=== PATIENT | male | born 1960 | race Caucasian/White ===

== ENCOUNTER → 2017-04-03 | Outpatient (CLI) | payer OTHER ==
[2017-04-03 08:44] LABS: ALT 45 U/L (21-72); AST 31 U/L (17-59); Cholesterol 173 mg/dL (<200); HDL Cholesterol 37 mg/dL (40-60); LDL Cholesterol,Calculated 98 mg/dL (0-99); Triglycerides 189 mg/dL (<150)
== END | disposition home or self-care (01) ==
LOC: LABWHC1 07:28
PROVIDERS: ATTEND Internal Medicine Interventional Cardiology
DX: E78.2 Mixed hyperlipidemia (principal)
CPT/HCPCS: 36415; 80061; 84450; 84460

== ENCOUNTER → 2017-10-19 | Outpatient (CLI) | payer OTHER ==
[2017-10-19 07:58] LABS: Basophils % (A) 1 %; Eosinophils # (A) 0.2 k/uL (0-0.7); Eosinophils % (A) 2 %; HCT 49.2 % (39.0-53.0); HGB 16.1 gm/dL (13.0-17.5); Lymphocytes # (A) 2.3 k/uL (1.0-4.8); Lymphocytes % (A) 27 %; MCH 29.4 pg (25.0-35.0); MCHC 32.8 g/dL (31.0-37.0); MCV 89.8 fL (80.0-100.0); Mean Platelet Volume 6.1; Monocytes # (A) 0.5 k/uL (0-1.0); Monocytes % (A) 6 %; Neutrophils # (A) 5.2 k/uL (1.3-7.7); Neutrophils % (A) 63 %; Platelet Count 225 k/uL (150-450); RBC 5.47 m/uL (4.30-5.90); WBC 8.4 k/uL (3.8-10.6)
[2017-10-19 10:09] LABS: ALT 57 U/L (21-72); AST 39 U/L (17-59); Albumin 4.1 g/dL (3.5-5.0); Alkaline Phosphatase 77 U/L (38-126); Anion Gap 7 mmol/L; Blood Urea Nitrogen 14 mg/dL (9-20); Calcium 9.2 mg/dL (8.4-10.2); Carbon Dioxide 27 mmol/L (22-30); Chloride 108 mmol/L (98-107); Cholesterol 151 mg/dL (<200); Glucose 114 mg/dL (74-99); HDL Cholesterol 34 mg/dL (40-60); LDL Cholesterol,Calculated 75 mg/dL (0-99); Potassium 4.3 mmol/L (3.5-5.1); Sodium 142 mmol/L (137-145); Total Bilirubin 0.4 mg/dL (0.2-1.3); Total Protein 6.9 g/dL (6.3-8.2); Triglycerides 209 mg/dL (<150)
[2017-10-19 10:23] LABS: T4, Free (Free Thyroxine) 1.17 ng/dL (0.78-2.19)
[2017-10-19 10:37] LABS: PSA Annual Screen 0.93 ng/mL (0.00-4.00)
[2017-10-19 19:13] LABS: Hemoglobin A1C 6.2 % (4.0-6.0)
== END | disposition home or self-care (01) ==
LOC: LABWHC1 07:28
PROVIDERS: ATTEND Internal Medicine Critical Care Medicine
DX: E78.5 Hyperlipidemia, unspecified (principal); I10 Essential (primary) hypertension; R53.83 Other fatigue; Z79.899 Other long term (current) drug therapy
CPT/HCPCS: 84439; 80061; 80053; 84443; 85025; 82306; 83036; 36415; G0103

== ENCOUNTER → 2018-09-24 | Outpatient (CLI) | payer SELFPAY ==
[2018-09-24 16:12] LABS: Chol/HDL Ratio 3.6; LDL Cholesterol,Calculated 72.4 mg/dL (0.0-131.0); VLDL Calculation 36.6 mg/dL (5.00-40.00)
== END ==
LOC: LABWHC1 07:30
PROVIDERS: ATTEND Nurse Practitioner Adult Health
DX: E78.2 Mixed hyperlipidemia (principal)
CPT/HCPCS: 36415; 80061; 84450; 84460

== ENCOUNTER → 2018-10-17 | Outpatient (CLI) | payer SELFPAY ==
[2018-10-17 13:54] LABS: Hemoglobin A1C 6.3 % (4.0-6.0)
== END | disposition home or self-care (01) ==
LOC: LABWHC1 07:12
PROVIDERS: ATTEND Internal Medicine Critical Care Medicine
DX: R73.9 Hyperglycemia, unspecified (principal)
CPT/HCPCS: 36415; 82947; 83036

== ENCOUNTER → 2019-04-17 | Outpatient (CLI) | payer SELFPAY ==
--- NOTE | 2019-04-17 15:50 | CTL ---
EXAMINATION TYPE: CT Low Dose Lung DATE OF EXAM ORDERED: 04/17/2019 HISTORY: Long-term tobacco use. Lung cancer screening CT DLP: 104.[address] CTDI: 2.6 mGy Automated exposure control for dose reduction was used. SCREENING VISIT: Initial study COMPARISON: None TECHNIQUE: Low dose computed tomography scan was performed through the chest at 1 mm thick sections a nd reconstructed images in the coronal plane at [address] DIAGNOSTIC QUALITY: Satisfactory FINDINGS: LUNG NODULES: None. LUNGS: COPD: Severity: Moderate Fibrosis: Severity: Mild to moderate focal posterior bibasilar. Lymph nodes: No greater than 1 cm Other findings: None BILATERAL PLEURAL SPACE: Effusion: None Calcification: None Thickening: None Pneumothorax: None HEART: Heart Size: Normal Coronary calcification: Mild Pericardial effusion: None OTHER FINDINGS: Upper abdomen: None Bony thorax: Early moderate to severe multilevel anterior and lateral spurring Supraclavicular region: None Other: None IMPRESSION: Moderate emphysematous change without suspicious nodules. FOLLOW UP CT CHEST RECOMMENDATION: Annual low-dose lung screening CT CT LUNG RAD: Lung-Rad 1 Negative
== END | disposition home or self-care (01) ==
LOC: RADCTMAIN 15:13
PROVIDERS: ATTEND Internal Medicine Critical Care Medicine
DX: J43.9 Emphysema, unspecified (principal); Z87.891 Personal history of nicotine dependence

== ENCOUNTER → 2019-10-14 | Outpatient (CLI) | payer SELFPAY ==
[2019-10-14 18:09] LABS: African American GFR (CKD) 83.5 (60.0-200.0); Albumin 4.2 g/dL (3.80-4.90); Albumin/Globulin Ratio 2.1 (1.60-3.17); Anion Gap 5.6 mmol/L (4.00-12.00); BUN/Creat Ratio 14.55 Ratio (12.00-20.00); Calcium 9.1 mg/dL (8.7-10.3); Carbon Dioxide 27.4 mmol/L (21.6-31.8); Chol/HDL Ratio 2.98; LDL Cholesterol,Calculated 68.2 mg/dL (0.0-131.0); Non-African American GFR(CKD) 72.1 (60.0-200.0); Potassium 4.3 mmol/L (3.5-5.5); Total Bilirubin 0.4 mg/dL (0.2-1.2); Total Protein 6.2 g/dL (6.2-8.2); VLDL Calculation 14.8 mg/dL (5.00-40.00)
[2019-10-15 00:21] LABS: Hemoglobin A1C 6.3 % (4.0-6.0)
== END | disposition home or self-care (01) ==
LOC: LABWHC1 07:59
PROVIDERS: ATTEND Internal Medicine Interventional Cardiology
DX: E78.2 Mixed hyperlipidemia (principal); E16.2 Hypoglycemia, unspecified; R63.4 Abnormal weight loss
CPT/HCPCS: 36415; 80053; 80061; 83036

== ENCOUNTER → 2020-01-23 | Outpatient (CLI) | payer SELFPAY ==
[2020-01-23 16:07] LABS: Hemoglobin A1C 5.8 % (4.0-6.0)
[2020-01-23 20:01] LABS: African American GFR (CKD) 106.5 (60.0-200.0); Albumin 4.6 g/dL (3.80-4.90); Albumin/Globulin Ratio 2.3 (1.60-3.17); Anion Gap 5.9 mmol/L (4.00-12.00); BUN/Creat Ratio 18.89 Ratio (12.00-20.00); Calcium 9.6 mg/dL (8.7-10.3); Carbon Dioxide 27.1 mmol/L (21.6-31.8); Chol/HDL Ratio 2.84; LDL Cholesterol,Calculated 66.6 mg/dL (0.0-131.0); Non-African American GFR(CKD) 91.9 (60.0-200.0); Potassium 4.5 mmol/L (3.5-5.5); Total Bilirubin 0.6 mg/dL (0.3-1.2); Total Protein 6.6 g/dL (6.2-8.2); VLDL Calculation 16.4 mg/dL (5.00-40.00)
== END | disposition home or self-care (01) ==
LOC: LABWHC1 10:36
PROVIDERS: ATTEND Internal Medicine Critical Care Medicine
DX: I10 Essential (primary) hypertension (principal); E78.2 Mixed hyperlipidemia; R73.03 Prediabetes; Z20.828 Contact with and (suspected) exposure to other viral communicable diseases
CPT/HCPCS: 36415; 80053; 80061; 83036; 86769

== ENCOUNTER → 2021-03-03 | Outpatient (CLI) | payer SELFPAY ==
[2021-03-03 14:35] LABS: Basophils # (A) 0.03 X 10*3/uL (0.00-0.10); Basophils % (A) 0.4 %; Eosinophils # (A) 0.18 X 10*3/uL (0.04-0.35); Eosinophils % (A) 2.3 %; HCT 46.6 % (39.6-50.0); HGB 14.9 g/dL (13.0-17.0); Lymphocytes # (A) 2.57 X 10*3/uL (0.90-5.00); Lymphocytes % (A) 32.6 %; MCH 29.4 pg (27.0-32.0); MCV 92.1 fL (80.0-97.0); Mean Platelet Volume 9.7 fL (9.5-12.2); Monocytes # (A) 0.78 X 10*3/uL (0.20-1.00); Monocytes % (A) 9.9 %; Neutrophils # (A) 4.31 X 10*3/uL (1.80-7.70); Neutrophils % (A) 54.7 %; Platelet Count 231 X 10*3/uL (140-440); RBC 5.06 X 10*6/uL (4.40-5.60); RDW 14.4 % (11.5-14.5); WBC 7.88 X 10*3/uL (4.50-10.00)
[2021-03-03 16:17] LABS: ALT 30 U/L (10-49); AST 27 U/L (14-35); African American GFR (CKD) 108.4 (60.0-200.0); Albumin 4.3 g/dL (3.8-4.9); Alkaline Phosphatase 86 U/L (41-126); BUN/Creat Ratio 14.42 Ratio (12.00-20.00); Blood Urea Nitrogen 12.2 mg/dL (9.0-27.0); Carbon Dioxide 21.6 mmol/L (20.0-27.5); Chloride 108 mmol/L (96-109); Globulin 2.3 g/dL (1.6-3.3); Glucose 109 mg/dL (70-110); Non-African American GFR(CKD) 93.6 (60.0-200.0); Potassium 4.5 mmol/L (3.5-5.5); Sodium 141 mmol/L (135-145); Total Protein 6.6 g/dL (6.2-8.2)
[2021-03-03 16:19] LABS: Chol/HDL Ratio 2.64 Ratio; VLDL Calculation 13.14 mg/dL (5.00-40.00)
== END | disposition home or self-care (01) ==
LOC: LABWHC1 07:47
PROVIDERS: ATTEND Internal Medicine Critical Care Medicine
DX: Z00.00 Encounter for general adult medical examination without abnormal findings (principal); E78.2 Mixed hyperlipidemia; J44.9 Chronic obstructive pulmonary disease, unspecified; M54.30 Sciatica, unspecified side; K21.9 Gastro-esophageal reflux disease without esophagitis; F41.9 Anxiety disorder, unspecified; I10 Essential (primary) hypertension; R73.03 Prediabetes
CPT/HCPCS: 84439; 80061; 80053; 85025; 82306; 83036; 36415; G0103

== ENCOUNTER → 2021-05-14 | Outpatient (CLI) | payer SELFPAY ==
[2021-05-14 08:15] LABS: African American GFR (CKD) >90 (>60 ml/min/1.73 sqM); Blood Urea Nitrogen 18 mg/dL (9-20); Non-African American GFR(CKD) >90 (>60 ml/min/1.73 sqM)
--- NOTE | 2021-05-14 13:32 | CT ---
EXAMINATION TYPE: CT ChestAbdPelvis w con DATE OF EXAM: 05/14/2021 COMPARISON: CT dated 04/17/2019 HISTORY: Abnormal weight loss CT DLP: 1241 mGycm Automated exposure control for dose reduction was used. CONTRAST: CT scan of the chest, abdomen and pelvis is performed with Oral Contrast and with IV Contrast, patien t injected with 100 ml mL of Isovue 300. FINDINGS: LUNGS: COPD changes. Bilateral basal pulmonary atelectasis. Unremarkable lungs otherwise. Patent cent ral airways. No pleural effusion. MEDIASTINUM: There are no greater than 1 cm hilar or mediastinal lymph nodes. Slightly enlarged right ventricle. Coronary and arterial atherosclerotic calcifications. No pericardial effusion is seen. OTHER: Sclerotic focus within the axillary portion of the right ninth rib, nonspecific. Further bone scan assessment can be considered. No aggressive bone lesion. LIVER/GB: Stable tiny right hepatic lobe cyst measuring 5 mm, otherwise unremarkable liver. Unremarka ble gallbladder. PANCREAS: No significant abnormality is seen. SPLEEN: 5 mm cyst is seen at the upper pole of the spleen. Unremarkable spleen otherwise. ADRENALS: No significant abnormality is seen. KIDNEYS: No significant abnormality is seen. BOWEL: Unremarkable stomach and duodenum. Mild nonspecific dilatation of the small bowel without sandor dence of high-grade small bowel obstruction. Fecalization of the distal ileal loops. Malabsorption sy ndrome can't be excluded. Moderate fecal loading of the colon. REPRODUCTIVE ORGANS: No gross abnormality seen. LYMPH NODES: No greater than 1 cm abdominal or pelvic lymph nodes are appreciated. OSSEOUS STRUCTURES: Bilateral L4-5 facet osteoarthropathy with grade 1 anterolisthesis of L5 over S1. Degenerative changes at L5-S1 level. No aggressive bone lesion. OTHER: Scattered arterial atherosclerotic calcifications. No sizable ascites. IMPRESSION: 1. No definite suspicious lesion or lymphadenopathy seen in the chest, abdomen or the pelvis. 2. COPD changes. 3. Malabsorption syndrome cannot excluded by this CT scan. Other findings as described above.
== END | disposition home or self-care (01) ==
LOC: RADCTMAIN 07:29
PROVIDERS: ATTEND Internal Medicine Critical Care Medicine
DX: J44.9 Chronic obstructive pulmonary disease, unspecified (principal); K90.9 Intestinal malabsorption, unspecified
CPT/HCPCS: 82565; 84520; 71260; 74177; 36415; Q9967

== ENCOUNTER 2022-03-10 19:50 | Inpatient (IN) | payer SELFPAY ==
--- NOTE | 2022-03-10 20:43 | XR ---
EXAMINATION TYPE: XR chest 2V DATE OF EXAM: 03/10/2022 COMPARISON: Outside chest x-ray February 03, 2022. Prior CT May 14, 2021 HISTORY: Shortness of breath TECHNIQUE: Frontal and lateral views of the chest are obtained. FINDINGS: There is background chronic emphysematous change without suspicious focal air space opacit y, pleural effusion, or pneumothorax seen. The cardiac silhouette size is stable and within normal l imits. Multilevel spurring in thoracic spine is present. IMPRESSION: Chronic emphysematous change without acute pulmonary process.
--- NOTE | 2022-03-10 21:01 | ED ---
SOB HPI - General Chief Complaint: Shortness of Breath Stated Complaint: ADRIA Time Seen by Provider: 03/10/22 20:05 Source: patient, family, RN notes reviewed Mode of arrival: ambulatory Limitations: no limitations - History of Present Illness Initial Comments: 61-year-old male history of COPD who states for the past 2 months she's had progressively worsening symptoms of shortness of breath he's had a nonproductive cough recently has had fevers and chills he test himself twice a week and was negative for "on his last test. He is seen his pulmonary doctor as well as cardiology recently with no definitive diagnosis. He denies any overt chest pain he does normally use oxygen 2 L at night. He does use inhalers. He states is had decreased appetite weakness he severe frontal headache he's had 2 episodes of nausea vomiting last couple days. He states his temperature is gotten up to 101-102F he's not been sleeping well. MD Complaint: shortness of breath, cough - Related Data Home Medications Medication Instructions Recorded Confirmed ALPRAZolam [Xanax] 0.5 mg PO DAILY 10/30/18 10/30/18 Ipratropium/Albuterol Sulfate 1 puff INHALATION Q4-6H 10/30/18 10/30/18 [Combivent Respimat Inhaler] Rizatriptan Benzoate [Rizatriptan] 10 mg PO DAILY 10/30/18 10/30/18 Simvastatin [Zocor] 40 mg PO DAILY 10/30/18 10/30/18 dilTIAZem HCL [Cardizem] 120 mg PO TID 10/30/18 10/30/18 metFORMIN HCL [Glucophage] 500 mg PO DAILY 10/30/18 10/30/18 Allergies Allergy/AdvReac Type Severity Reaction Status Date / Time No Known Allergies Allergy Verified 10/30/18 15:11 Review of Systems ROS Statement: Those systems with pertinent positive or pertinent negative responses have been documented in the HPI. ROS Other: All systems not noted in ROS Statement are negative. Past Medical History Past Medical History: COPD, GERD/Reflux, Hyperlipidemia, Hypertension Additional Past Medical History / Comment(s): pre diabetes, sciatica, chronic back pain, migraines History of Any Multi-Drug Resistant Organisms: None Reported Past Surgical History: Orthopedic Surgery Additional Past Surgical History / Comment(s): left knee arthroscopy Past Psychological History: Anxiety Past Alcohol Use History: None Reported Past Drug Use History: None Reported General Exam - General Exam Comments Initial Comments: Is a well-developed sec appearing male who is awake alert oriented 4 Limitations: no limitations General appearance: alert, anxious, in distress Head exam: Present: atraumatic, normocephalic, normal inspection Eye exam: Present: normal appearance, PERRL, EOMI. Absent: scleral icterus, conjunctival injection, periorbital swelling ENT exam: Present: normal exam, mucous membranes moist Neck exam: Present: normal inspection, full ROM, other. Absent: tenderness, meningismus, lymphadenopathy Respiratory exam: Present: decreased breath sounds. Absent: respiratory distress, wheezes, rales, rhonchi, stridor Cardiovascular Exam: Present: normal rhythm, tachycardia, normal heart sounds. Absent: systolic murmur, diastolic murmur, rubs, gallop, clicks GI/Abdominal exam: Present: soft, normal bowel sounds. Absent: distended, tenderness, guarding, rebound, rigid Extremities exam: Present: normal inspection, full ROM, normal capillary refill. Absent: tenderness, pedal edema, joint swelling, calf tenderness Back exam: Present: normal inspection Neurological exam: Present: alert, oriented X3, CN II-XII intact Psychiatric exam: Present: normal affect, normal mood Skin exam: Present: warm, dry, intact, normal color. Absent: rash Course Vital Signs 03/10/22 19:51 Temperature 98.1 F Pulse Rate 107 H Respiratory 20 Rate Blood Pressure 123/74 O2 Sat by Pulse 94 L Oximetry - Reevaluation(s) Reevaluation #1: 03/10/22 23:02 Reevaluation of the patient he did feel improved after IV fluids and medication for his headache however he has persistent coughing and they get a recurrence of his headache after the persistent coughing. Medical Decision Making - Medical Decision Making Patient does have a mildly elevated d-dimer some lab work is pending patient does demonstrate clinically evidence of COPD exacerbation with bronchitis and intractable coughing. Also dehydration. Patient will be admitted case discussed with Dayami Cabrera covering for Dr. Barnes. Dr. Hussein will be consul rip. Was pt. sent in by a medical professional or institution (, PA, EXHAUST EQUIPMENT OPERATOR, urgent care, hospital, or detention...) When possible be specific @ -[No] Did you speak to anyone other than the patient for history (EMS, parent, family, police, friend...)? What history was obtained from this source @ -[No] Did you review nursing and triage notes (agree or disagree)? Why? @ -[I reviewed and agree with nursing and triage notes] Were old charts reviewed (outside hosp., previous admission, EMS record, old EKG, old radiological studies, urgent care reports/EKG's, detention records)? Report findings @ -[No old charts were reviewed] Differential Diagnosis (chest pain, altered mental status, abdominal pain women, abdominal pain men, vaginal bleeding, weakness, fever, dyspnea, syncope, headache, dizziness, GI bleed, back pain, seizure, CVA, palpatations, mental health)? @ -[COPD exacerbation, bronchitis, pneumonia,] EKG interpreted by me (3pts min.). @ -[As above] X-rays interpreted by me (1pt min.). @ -[Guesses above] CT interpreted by me (1pt min.). @ -[None done] U/S interpreted by me (1pt. min.). @ -[None done] What testing was considered but not performed or refused? (CT, X-rays, U/S, labs)? Why? @ -[None] What meds were considered but not given or refused? Why? @ -[None] Did you discuss the management of the patient with other professionals (professionals i.e. , PA, EXHAUST EQUIPMENT OPERATOR, lab, RT, psych nurse, psychiatric social worker supervisor, fender finisher, teacher, security public safety officer, nurse case manager)? Give summary @ -[No] Was smoking cessation discussed for >3mins.? @ -[No] Was critical care preformed (if so, how long)? @ -[No] Were there social determinants of health that impacted care today? How? (Homelessness, low income, unemployed, alcoholism, drug addiction, transportation, low edu. Level, literacy, decrease access to med. care, senior living, rehab)? @ -[No] Was there de-escalation of care discussed even if they declined (Discuss DNR or withdrawal of care, Hospice)? DNR status @ -[No] What co-morbidities impacted this encounter? (DM, HTN, Smoking, COPD, CAD, Cancer, CVA, ARF, Chemo, Hep., AIDS, mental health diagnosis, sleep apnea, morbid obesity)? @ -[COPD] Was patient admitted / discharged? Hospital course, mention meds given and route, prescriptions, significant lab abnormalities, going to OR and other pertinent info. @ -[hospital course] Undiagnosed new problem with uncertain prognosis? @ -[No] Drug Therapy requiring intensive monitoring for toxicity (Heparin, Nitro, Insulin, Cardizem)? @ -[No] Were any procedures done? @ -[No] Diagnosis/symptom? @ -[COPD exacerbation, acute bronchitis, dehydration PATIENT treatment failure] Acute, or Chronic, or Acute on Chronic? @ -[default] Uncomplicated (without systemic symptoms) or Complicated (systemic symptoms)? @ -[default] Side effects of treatment? @ -[No] Exacerbation, Progression, or Severe Exacerbation? @ -[Progression in exacerbation of COPD] Poses a threat to life or bodily function? How? (Chest pain, [place], [place], pneumonia, PE, COPD, DKA, ARF, appy, cholecystitis, CVA, Diverticulitis, Homicidal, Suicidal, threat to staff... and all critical care pts) @ -[Potential] - Lab Data Result diagrams: 03/10/22 20:21 Lab Results 03/10/22 03/10/22 03/10/22 Range/Units 20:21 20:21 20:21 PT 10.1 (9.0-12.0) sec INR 0.9 (<1.2) APTT 26.5 (22.0-30.0) sec D-Dimer 0.64 H (<0.60) mg/L FEU Sodium 135 L (137-145) mmol/L Potassium 4.2 (3.5-5.1) mmol/L Chloride 102 (98-107) mmol/L Carbon Dioxide 26 (22-30) mmol/L Anion Gap 7 mmol/L BUN 13 (9-20) mg/dL Creatinine 0.61 L (0.66-1.25) mg/dL Est GFR (CKD-EPI)AfAm >90 (>60 ml/min/1.73 sqM) Est GFR (CKD-EPI)NonAf >90 (>60 ml/min/1.73 sqM) Glucose 103 H (74-99) mg/dL Plasma Lactic Acid Earnest 1.0 (0.7-2.0) mmol/L Calcium 8.7 (8.4-10.2) mg/dL Magnesium 2.0 (1.6-2.3) mg/dL Total Bilirubin 0.9 (0.2-1.3) mg/dL AST 36 (17-59) U/L ALT 45 (4-49) U/L Alkaline Phosphatase 120 (38-126) U/L Troponin I (0.000-0.034) ng/mL NT-Pro-B Natriuret Pep pg/mL Total Protein 7.3 (6.3-8.2) g/dL Albumin 4.2 (3.5-5.0) g/dL Influenza Type A (PCR) (Not Detectd) Influenza Type B (PCR) (Not Detectd) RSV (PCR) (Not Detectd) SARS-CoV-2 (PCR) (Not Detectd) 03/10/22 03/10/22 03/10/22 Range/Units 20:21 20:21 20:21 PT (9.0-12.0) sec INR (<1.2) APTT (22.0-30.0) sec D-Dimer (<0.60) mg/L FEU Sodium (137-145) mmol/L Potassium (3.5-5.1) mmol/L Chloride (98-107) mmol/L Carbon Dioxide (22-30) mmol/L Anion Gap mmol/L BUN (9-20) mg/dL Creatinine (0.66-1.25) mg/dL Est GFR (CKD-EPI)AfAm (>60 ml/min/1.73 sqM) Est GFR (CKD-EPI)NonAf (>60 ml/min/1.73 sqM) Glucose (74-99) mg/dL Plasma Lactic Acid Earnest (0.7-2.0) mmol/L Calcium (8.4-10.2) mg/dL Magnesium (1.6-2.3) mg/dL Total Bilirubin (0.2-1.3) mg/dL AST (17-59) U/L ALT (4-49) U/L Alkaline Phosphatase (38-126) U/L Troponin I <0.012 (0.000-0.034) ng/mL NT-Pro-B Natriuret Pep 70 pg/mL Total Protein (6.3-8.2) g/dL Albumin (3.5-5.0) g/dL Influenza Type A (PCR) Not Detected (Not Detectd) Influenza Type B (PCR) Not Detected (Not Detectd) RSV (PCR) Not Detected (Not Detectd) SARS-CoV-2 (PCR) Not Detected (Not Detectd) - EKG Data -: EKG Interpreted by Me EKG Comments: EKG interpreted by me shows a normal sinus rhythm of 98 01 32 QRS duration 100 QT since QTC 321/377 borderline right axis deviation no acute ST-T wave changes - Radiology Data Interpreted by me: Imaging interpreted by me no acute process evidence of COPD Disposition Clinical Impression: Acute exacerbation of chronic obstructive pulmonary disease, Acute bronchitis, Failure of outpatient treatment, Dehydration, Cough Disposition: ADMITTED IP TO THIS HOSP Condition: Fair Referrals: Chad Tobin DO [Primary Care Provider] - 1-2 days Decision Date: 03/10/22 Decision Time: 23:00
[2022-03-10] MEDS ORDERED: methylPREDNISolone SOD SUCCI 125 MG/2 ML VIAL IV STA (21:03)
[2022-03-10] MEDS ORDERED: SODIUM CHLORIDE 0.9% 1,000 ML IV STA (21:03)
[2022-03-10] MEDS ORDERED: KETOROLAC 15 MG/ML 1 ML VIAL IVP STA (21:04)
[2022-03-10 21:19] LABS: INR 0.9 (<1.2); Partial Thromboplastin Time 26.5 sec (22.0-30.0); Prothrombin Time 10.1 sec (9.0-12.0)
[2022-03-10 21:22] LABS: ALT 45 U/L (4-49); AST 36 U/L (17-59); African American GFR (CKD) >90 (>60 ml/min/1.73 sqM); Albumin 4.2 g/dL (3.5-5.0); Alkaline Phosphatase 120 U/L (38-126); Anion Gap 7 mmol/L; Blood Urea Nitrogen 13 mg/dL (9-20); Calcium 8.7 mg/dL (8.4-10.2); Carbon Dioxide 26 mmol/L (22-30); Chloride 102 mmol/L (98-107); Glucose 103 mg/dL (74-99); Non-African American GFR(CKD) >90 (>60 ml/min/1.73 sqM); Sodium 135 mmol/L (137-145); Total Bilirubin 0.9 mg/dL (0.2-1.3); Total Protein 7.3 g/dL (6.3-8.2)
[2022-03-10 21:27] LABS: Potassium 4.2 mmol/L (3.5-5.1)
[2022-03-10] MEDS ORDERED: BENZONATATE 100 MG CAP PO STA (23:01)
[2022-03-10] MEDS ORDERED: BENZONATATE 100 MG CAP PO PRN (23:07)
[2022-03-10] MEDS ORDERED: ACETAMINOPHEN TAB 325 MG TAB PO PRN (23:07)
[2022-03-10] MEDS ORDERED: NALOXONE 0.4 MG/ML 1 ML VIAL IVP PRN (23:07)
[2022-03-10] MEDS ORDERED: cefTRIAXone IN SWFI 1,000 MG/10 ML SYRINGE IVP STA (23:09)
--- NOTE | 2022-03-11 00:12 | CT ---
EXAMINATION TYPE: CT angio chest DATE OF EXAM: 03/11/2022 COMPARISON: 05/14/2021 HISTORY: SOB CT DLP: 412.5 mGycm Automated exposure control for dose reduction was used. CONTRAST: Performed with IV Contrast, patient injected with 80 mL of Isovue 370. Images obtained from the thoracic inlet to the diaphragm with the IV contrast. There are Three-D post processed images. There is some mild pulmonary emphysema. There is no mediastinal adenopathy. There are no hilar masses . There is normal contrast opacification of the pulmonary arteries. No filling defect thoracic aorta is intact. No aneurysm or dissection. Heart size is normal. No pericardial effusion. There is 3.6 cm masslike area of consolidation in the right lower lobe adjacent to the chest wall. There is no adrena l mass. Upper abdominal soft tissues are intact. IMPRESSION: No evidence of pulmonary embolism. Right lower lobe pneumonic consolidation. Follow-up is recommended to show clearing. Pulmonary emphysema. Right lower lobe consolidation is new compared to the old exam.
[2022-03-11] MEDS: methylPREDNISolone SOD SUCCI 125 MG/2 ML VIAL IV SCH ×4 (06:27→23:10)
[2022-03-11] MEDS: IPRATROPIUM-ALBUTEROL 3 ML NEB INHALATION SCH ×4 (08:37→20:30)
[2022-03-11] MEDS ORDERED: SUMAtriptan succinate 50 MG TAB PO PRN (09:00)
[2022-03-11] MEDS ORDERED: AMOXIC-POT CLAV 875-125MG 1 EACH TAB PO SCH (09:00)
[2022-03-11] MEDS ORDERED: ALPRAZolam 0.5 MG TAB PO SCH (09:00)
[2022-03-11] MEDS: DILTIAZEM ORAL 60 MG TAB PO SCH ×3 (09:13→21:05)
[2022-03-11] MEDS: ATORVASTATIN 20 MG TAB PO SCH (09:13)
[2022-03-11] MEDS: metFORMIN 500 MG TAB PO SCH ×2 (09:13→09:16)
[2022-03-11] MEDS: NICOTINE 14MG/24HR PATCH TRANSDERM SCH (09:27)
[2022-03-11] MEDS ORDERED: guaiFENesin-DM 100-10MG/5ML 10 ML CUP PO PRN (10:22)
--- NOTE | 2022-03-11 10:23 | P.HPIM ---
History of Present Illness This is a pleasant 61 years old male with past medical history of COPD, GERD/Reflux, Hyperlipidemia, Hypertension. pre diabetes, sciatica, chronic back pain, migraines Patient presents because of slowly progressive breathing difficulty over 60 days, his PCP on swiss type screw machine operator is Dr. Tobin and he talked to the patient to use to trilogy with no improvement Dr. Tobin asked him to stop trilogy and go back to his old breathing regimens but still if no improvement then to come to emergency room. Also patient complaining of from dry coughing but no chest pain. He smoked about 1.5 pack per day and he was counseled to quit and he has a neurologic headache bodyaches weakness sob. nonproductive cough. states fever at home. lung sounds diminished lower lobes rhonchi to upper lobes Vitas looks stable, afebrile, saturating 94% on room air on admission. CBC INR 0.9 Sodium 135, creatinine normal. Liver enzymes and troponin are negative. Influenza and covid R undetected CTA of the chest showed no pulmonary embolism, right lower lobe pneumonic consolidation and follow-up recommended to show clearing EKG showing normal sinus rhythm at [address]-T changes. Patient emergency room started on Augmentin and IV Solu-Medrol 60 mg. Also received 1 dose of ceftriaxone. Review of Systems Review of systems CONSTITUTIONAL: No fever, no malaise, no fatigue. HEENT: No recent visual problems or hearing problems. Denied any sore throat. CARDIOVASCULAR: No orthopnea, PND, no palpitations, no syncope. PULMONARY: No chest wall tenderness, no hemoptysis. GASTROINTESTINAL: No diarrhea, no nausea, no vomiting, no abdominal pain. Normoactive bowel sounds. NEUROLOGICAL: No headaches, no weakness, no numbness. HEMATOLOGICAL: Denies any bleeding or petechiae. GENITOURINARY: Denies any burning micturition, frequency, or urgency. MUSCULOSKELETAL/RHEUMATOLOGICAL: Denies any joint pain, swelling, or any muscle pain. ENDOCRINE: Denies any polyuria or polydipsia. Past Medical History Past Medical History: COPD, GERD/Reflux, Hyperlipidemia, Hypertension Additional Past Medical History / Comment(s): pre diabetes, sciatica, chronic back pain, migraines History of Any Multi-Drug Resistant Organisms: None Reported Past Surgical History: Orthopedic Surgery Additional Past Surgical History / Comment(s): left knee arthroscopy Past Psychological History: Anxiety Past Alcohol Use History: None Reported Past Drug Use History: None Reported Medications and Allergies Home Medications Medication Instructions Recorded Confirmed Type ALPRAZolam [Xanax] 0.5 mg PO TID 10/30/18 03/11/22 History Rizatriptan Benzoate [Rizatriptan] 10 mg PO DAILY PRN 10/30/18 03/11/22 History Albuterol Sulfate [Albuterol 2 puff PO RT-Q6H PRN 03/11/22 03/11/22 History Sulfate Hfa] Aspirin 81 mg PO DAILY 03/11/22 03/11/22 History Atorvastatin [Lipitor] 20 mg PO HS 03/11/22 03/11/22 History Cholecalciferol (Vitamin D3) 75 mcg PO DAILY 03/11/22 03/11/22 History [Vitamin D3 (3000 Iu)] Cinnamon Bark [Cinnamon] 500 mg PO DAILY 03/11/22 03/11/22 History Cyanocobalamin (Vitamin B-12) 1,000 mcg PO DAILY 03/11/22 03/11/22 History [Vitamin B-12] Diltiazem Cd [Cardizem CD] 120 mg PO W/LUNCH 03/11/22 03/11/22 History Ibuprofen/Acetaminophen [Advil 1 tab PO BID 03/11/22 03/11/22 History Dual Action 250Mg-125Mg] Potassium Citrate 99 mg PO DAILY 03/11/22 03/11/22 History Zinc Gluconate [Zinc] 50 mg PO AC-SUPPER 03/11/22 03/11/22 History Allergies Allergy/AdvReac Type Severity Reaction Status Date / Time No Known Allergies Allergy Verified 03/11/22 07:36 Physical Exam Vitals: Vital Signs Temp Pulse Resp BP Pulse Ox 03/10/22 19:51 98.1 F 107 H 20 123/74 94 L Intake and Output 03/10/22 03/10/22 03/11/22 14:59 22:59 06:59 Other: Weight 83.915 kg GENERAL: The patient is alert and oriented x3, not in any acute distress. Well developed, well nourished. HEENT: Pupils are round and equally reacting to light. EOMI. No scleral icterus. No conjunctival pallor. Normocephalic, atraumatic. No pharyngeal erythema. No thyromegaly. CARDIOVASCULAR: S1 and S2 present. No murmurs, rubs, or gallops. -PULMONARY: Chest is clear to auscultation, no wheezing or crackles. Tachypnea ABDOMEN: Soft, nontender, nondistended, normoactive bowel sounds. No palpable organomegaly. MUSCULOSKELETAL: No joint swelling or deformity. EXTREMITIES: No cyanosis, clubbing, or pedal edema. NEUROLOGICAL: Gross neurological examination did not reveal any focal deficits. SKIN: No rashes. no petechiae. Results CBC & Chem 7: 03/10/22 20:21 Labs: Abnormal Lab Results - Last 24 Hours (Table) 03/10/22 03/10/22 Range/Units 20:21 20:21 D-Dimer 0.64 H (<0.60) mg/L FEU Sodium 135 L (137-145) mmol/L Creatinine 0.61 L (0.66-1.25) mg/dL Glucose 103 H (74-99) mg/dL Assessment and Plan Assessment: Right lower lobe pneumonia Acute COPD exacerbation Hyperlipidemia Hypertension History of GERD Chronic back pain History of migraine Plan: Continue with antibiotic, Augmentin and Follow-UpCalcitonin Continue with steroids Continue with bronchodilator Pulmonary consult Labs and medication were reviewed.. Continue same treatment. Continue with symptomatic treatment. Resume home medication. Monitor lytes and vitals. DVT and GI prophylaxis. Further recommendations as per clinical course of the patient DVT prophylaxis: Subcutaneous heparin GI Prophylaxis: Pepcid Prognosis is guarded
[2022-03-11] MEDS: BENZONATATE 100 MG CAP PO PRN ×3 (11:16→23:09)
[2022-03-11] MEDS: AZITHROMYCIN 500 MG in SODIUM CHLORIDE 0.9% 250 ML IVPB SCH (12:11)
[2022-03-11 13:15] LABS: Basophils % (A) 0 %; Eosinophils % (A) 0 %; HCT 41.3 % (39.0-53.0); HGB 13.8 gm/dL (13.0-17.5); Lymphocytes # (A) 0.6 k/uL (1.0-4.8); Lymphocytes % (A) 6 %; MCH 29.7 pg (25.0-35.0); MCHC 33.3 g/dL (31.0-37.0); MCV 89.1 fL (80.0-100.0); Mean Platelet Volume 7.8; Monocytes # (A) 0.2 k/uL (0-1.0); Monocytes % (A) 2 %; Neutrophils % (A) 91 %; Platelet Count 281 k/uL (150-450); RBC 4.64 m/uL (4.30-5.90); RDW 13.4 % (11.5-15.5)
--- NOTE | 2022-03-11 14:38 | P.CNPUL ---
History of Present Illness Consult date: 03/11/22 Requesting physician: Jaxson Gray Reason for consult: COPD, pneumonia Chief complaint: shortness of breath History of present illness: I'm seeing this patient today in consultation for an right lower lobe pneumonia found on chest. This is a pleasant 61 year old male with a past medical history of COPD, current smoker 1.5 packs per day, GERD, hyperlipidemia, hypertension, prediabetes, chronic back pain. Patient presented to [facility] yesterday for persistent shortness of breath lasting over 2 months and associated nonproductive cough. he is treated his cough with some old cough medicine. He also had fevers and chills. He denies any chest pain or hemoptysis. patient is currently sitting up in bed, on room air, in no acute distress. patient's Chest CTA from today showed a right lower lobe consolidation, chronic emphysema like changes, without pulmonary embolism. P atient's CBC patient's CBC from today shows a WBC count of 10, hemoglobin 13.8, hematocrit 41.3, platelets 281,000. Patient's BMP from today shows a sodium 135, potassium 4.2, chloride 102, serum CO2 26, BUN 13, creatinine 0.61, glucose 103. patient was negative for influenza, RSV, coronavirus. patient is currently being covered with a combination of azithromycin and Rocephin. patient is currently afebrile. Patient is also receiving bronchodilators and IV Solu- Medrol. vital signs are stable. Review of Systems REVIEW OF SYSTEMS: CONSTITUTIONAL: Denies any recent significant weight loss or weight gain. EYES: Denies change in vision. EARS, NOSE, MOUTH, THROAT: Denies headaches, denies sore throat. CARDIOVASCULAR: Denies chest pain, palpitations or syncopal episodes. RESPIRATORY: see HPI GASTROINTESTINAL: Denies change in appetite, denies abdominal pain GENITOURINARY: Denies hematuria, denies infections. MUSKULOSKELETAL: Denies pain, denies swelling. INTEGUMENTARY: Denies rash, denies eczema. NEUROLOGICAL: Denies recent memory loss, no recent seizure activity. PSYCHIATRIC: Denies anxiety, denies depression. HEMATOLOGIC/LYMPHATIC: Denies anemia, denies enlarged lymph nodes. Past Medical History Past Medical History: COPD, GERD/Reflux, Hyperlipidemia, Hypertension Additional Past Medical History / Comment(s): pre diabetes, sciatica, chronic back pain, migraines History of Any Multi-Drug Resistant Organisms: None Reported Past Surgical History: Orthopedic Surgery Additional Past Surgical History / Comment(s): left knee arthroscopy Past Anesthesia/Blood Transfusion Reactions: No Reported Reaction Past Psychological History: Anxiety Past Alcohol Use History: None Reported Past Drug Use History: None Reported Medications and Allergies Home Medications Medication Instructions Recorded Confirmed Type ALPRAZolam [Xanax] 0.5 mg PO TID 10/30/18 03/11/22 History Rizatriptan Benzoate [Rizatriptan] 10 mg PO DAILY PRN 10/30/18 03/11/22 History Albuterol Sulfate [Albuterol 2 puff PO RT-Q6H PRN 03/11/22 03/11/22 History Sulfate Hfa] Aspirin 81 mg PO DAILY 03/11/22 03/11/22 History Atorvastatin [Lipitor] 20 mg PO HS 03/11/22 03/11/22 History Cholecalciferol (Vitamin D3) 75 mcg PO DAILY 03/11/22 03/11/22 History [Vitamin D3 (3000 Iu)] Cinnamon Bark [Cinnamon] 500 mg PO DAILY 03/11/22 03/11/22 History Cyanocobalamin (Vitamin B-12) 1,000 mcg PO DAILY 03/11/22 03/11/22 History [Vitamin B-12] Diltiazem Cd [Cardizem CD] 120 mg PO W/LUNCH 03/11/22 03/11/22 History Ibuprofen/Acetaminophen [Advil 1 tab PO BID 03/11/22 03/11/22 History Dual Action 250Mg-125Mg] Potassium Citrate 99 mg PO DAILY 03/11/22 03/11/22 History Zinc Gluconate [Zinc] 50 mg PO AC-SUPPER 03/11/22 03/11/22 History Allergies Allergy/AdvReac Type Severity Reaction Status Date / Time No Known Allergies Allergy Verified 03/11/22 07:36 Physical Exam Vitals: Vital Signs Temp Pulse Pulse Resp BP BP Pulse Ox 03/11/22 13:17 84 03/11/22 13:00 80 03/11/22 09:02 84 03/11/22 08:38 84 03/11/22 07:14 97.6 F 85 18 122/69 91 L 03/11/22 04:01 93 L 03/11/22 01:00 98.1 F 82 20 118/71 92 L 03/10/22 19:51 98.1 F 107 H 20 123/74 94 L FiO2 03/11/22 13:17 03/11/22 13:00 03/11/22 09:02 03/11/22 08:38 03/11/22 07:14 03/11/22 04:01 21 03/11/22 01:00 03/10/22 19:51 Intake and Output 03/10/22 03/11/22 03/11/22 22:59 06:59 14:59 Intake Total 480 Balance 480 Intake: Oral 480 Other: # Voids 2 Weight 83.915 kg 83.915 kg GENERAL EXAM: Alert, active, comfortable in no apparent distress. HEAD: Normocephalic and atraumatic EYES: Normal reaction of pupils, equal size. NOSE: Clear with pink turbinates. THROAT: No erythema or exudates. NECK: No masses, no JVD. CHEST: No chest wall deformity. LUNGS: Equal air entry with no crackles, wheeze, rhonchi or dullness. No conversational dyspnea or accessory muscle use. CVS: S1 and S2 normal with no audible murmur, regular rhythm. ABDOMEN: No hepatosplenomegaly, normal bowel sounds, no guarding or rigidity. SPINE: No scoliosis or deformity SKIN: No rashes CENTRAL NERVOUS SYSTEM: No focal deficits, tone is normal in all 4 extremities. EXTREMITIES: There is no peripheral edema, clubbing, or cyanosis. Peripheral pulses are intact. Results - Laboratory Findings CBC and BMP: 03/11/22 10:35 03/10/22 20:21 PT/INR, D-dimer PT 10.1 sec (9.0-12.0) 03/10/22 20:21 INR 0.9 (<1.2) 03/10/22 20:21 D-Dimer 0.64 mg/L FEU (<0.60) H 03/10/22 20:21 Abnormal lab findings: Abnormal Labs 03/10/22 03/10/22 03/11/22 20:21 20:21 10:35 Neutrophils # 9.0 H Lymphocytes # 0.6 L D-Dimer 0.64 H Sodium 135 L Creatinine 0.61 L Glucose 103 H - Diagnostic Findings Chest x-ray: image reviewed CT scan - chest: image reviewed Assessment and Plan Assessment: community-acquired pneumonia of the right lower lobe. And currently being covered with Rocephin and azithromycin. Acute COPD exacerbation secondary to above. Patient was taking albuterol and Trelegy outpatient. He decided to quit his Trelegy inhaler due to some side effects. Hypertension Hyperlipidemia GERD without esophagitis chronic back pain plan Patients medication, labs, chest xray, chest CTA were reviewed Continue Emperic antibiotics in the form of Ceftriaxone and Azithromycin Continue bronchodialators Start Symbicort inhaler Continue IV solumedrol Check procalcitonin level we will continue to follow. I have personally seen and examined the patient, performed the documentation and the assessment and plan as written. Number of minutes spent on the visit: 20
[2022-03-11] MEDS: ALPRAZolam 0.5 MG TAB PO SCH ×2 (17:08→21:31)
[2022-03-11] MEDS: SYMBICORT 160-4.5 MCG INHALER INHALATION SCH (20:30)
[2022-03-11] MEDS: HEPARIN SODIUM,PORCINE/PF 5,000 UNIT/0.5 ML SYRINGE SQ SCH (20:33)
[2022-03-11] MEDS: FAMOTIDINE 20 MG/2 ML VIAL IV SCH (20:34)
[2022-03-11] MEDS: guaiFENesin SYRUP 100MG/5ML 200 MG/10 ML CUP PO PRN (20:34)
[2022-03-12] MEDS: methylPREDNISolone SOD SUCCI 125 MG/2 ML VIAL IV SCH ×4 (06:18→23:07)
[2022-03-12] MEDS: guaiFENesin SYRUP 100MG/5ML 200 MG/10 ML CUP PO PRN ×2 (06:18→14:59)
[2022-03-12] MEDS: SYMBICORT 160-4.5 MCG INHALER INHALATION SCH ×2 (09:25→19:24)
[2022-03-12] MEDS: IPRATROPIUM-ALBUTEROL 3 ML NEB INHALATION SCH ×4 (09:25→19:24)
[2022-03-12] MEDS: NICOTINE 14MG/24HR PATCH TRANSDERM SCH (09:39)
[2022-03-12] MEDS: ALPRAZolam 0.5 MG TAB PO PRN ×3 (09:39→22:39)
[2022-03-12] MEDS: HEPARIN SODIUM,PORCINE/PF 5,000 UNIT/0.5 ML SYRINGE SQ SCH ×2 (09:39→22:36)
[2022-03-12] MEDS: BENZONATATE 100 MG CAP PO PRN ×4 (09:39→22:39)
[2022-03-12] MEDS: FAMOTIDINE 20 MG/2 ML VIAL IV SCH ×2 (09:39→22:36)
[2022-03-12] MEDS: ATORVASTATIN 20 MG TAB PO SCH (09:39)
[2022-03-12] MEDS: DILTIAZEM ORAL 60 MG TAB PO SCH ×3 (09:40→23:02)
[2022-03-12] MEDS: metFORMIN 500 MG TAB PO SCH (09:41)
[2022-03-12] MEDS: AZITHROMYCIN 500 MG in SODIUM CHLORIDE 0.9% 250 ML IVPB SCH (09:46)
--- NOTE | 2022-03-12 11:53 | P.PN ---
Subjective Progress Note Date: 03/12/22 I'm seeing this patient today in consultation for an right lower lobe pneumonia found on chest. This is a pleasant 61 year old male with a past medical history of COPD, current smoker 1.5 packs per day, GERD, hyperlipidemia, hypertension, prediabetes, chronic back pain. Patient presented to [facility] yesterday for persistent shortness of breath lasting over 2 months and associated nonproductive cough. he is treated his cough with some old cough medicine. He also had fevers and chills. He denies any chest pain or hemoptysis. patient is currently sitting up in bed, on room air, in no acute distress. patient's Chest CTA from today showed a right lower lobe consolidation, chronic emphysema like changes, without pulmonary embolism. Patient's CBC patient's CBC from today shows a WBC count of 10, hemoglobin 13.8, hematocrit 41.3, platelets 281,000. Patient's BMP from today shows a sodium 135, potassium 4.2, chloride 102, serum CO2 26, BUN 13, creatinine 0.61, glucose 103. patient was negative for influenza, RSV, coronavirus. patient is currently being covered with a combination of azithromycin and Rocephin. patient is currently afebrile. Patient is also receiving bronchodilators and IV Solu- Medrol. vital signs are stable. The patient is seen today 03/12/2022 in follow-up on the regular medical floor. He is currently sitting up in a chair at the bedside. Awake and alert in no acute distress. He continues with a loose nonproductive cough. He is maintaining good O2 saturations in the 90s on room air. He's been afebrile. Hemodynamically stable. Blood cultures reveal no growth. No new labs today. He remains on Symbicort, DuoNeb inhalations, IV Solu-Medrol. Antibiotics in the form of ceftriaxone and azithromycin. Pro-calcitonin 0.04. NicoDerm patch in place. Heparin for DVT prophylaxis. Tessalon Perles and Robitussin for cough. Objective - Vital Signs Vital signs: Vital Signs Temp 97.8 F 03/12/22 07:22 Pulse 80 03/12/22 09:42 Resp 16 03/12/22 07:22 BP 107/63 03/12/22 07:22 Pulse Ox 93 L 03/12/22 09:26 FiO2 21 03/11/22 04:01 Intake & Output 03/11/22 03/12/22 03/12/22 18:59 06:59 18:59 Intake Total 1080 720 Balance 1080 720 Intake: Oral 1080 720 Other: # Voids 3 2 - Exam GENERAL EXAM: Alert, active, very pleasant 61-year-old male, on room air, comfortable in no apparent distress. HEAD: Normocephalic. EYES: Normal reaction of pupils, equal size. NOSE: Clear with pink turbinates. THROAT: No erythema or exudates. NECK: No masses, no JVD. CHEST: No chest wall deformity. LUNGS: Equal air entry with bilateral scattered rhonchi more so on the right lung. CVS: S1 and S2 normal with no audible murmur, regular rhythm. ABDOMEN: No hepatosplenomegaly, normal bowel sounds, no guarding or rigidity. SPINE: No scoliosis or deformity SKIN: No rashes CENTRAL NERVOUS SYSTEM: No focal deficits, tone is normal in all 4 extremities. EXTREMITIES: There is no peripheral edema. No clubbing, no cyanosis. Peripheral pulses are intact. - Labs CBC & Chem 7: 03/11/22 10:35 03/10/22 20:21 Labs: Abnormal Lab Results - Last 24 Hours (Table) 03/11/22 Range/Units 10:35 Neutrophils # 9.0 H (1.3-7.7) k/uL Lymphocytes # 0.6 L (1.0-4.8) k/uL Microbiology - Last 24 Hours (Table) 03/10/22 20:20 Blood Culture - Preliminary Blood No Growth after 24 hours 03/10/22 20:21 Blood Culture - Preliminary Blood No Growth after 24 hours Assessment and Plan Assessment: Acute community-acquired pneumonia of the right lower lobe. Currently being covered with Rocephin and azithromycin though Procalcitonin 0.04. Computed tomography scan reveals a right lower lobe masslike consolidation measuring 3.6 cm. May require bronchoscopy with biopsy Acute COPD exacerbation secondary to above. Patient was taking albuterol and Trelegy outpatient. He decided to quit his Trelegy inhaler due to some side effects. Chronic and ongoing tobacco dependence Hypertension Hyperlipidemia GERD without esophagitis Chronic back pain Chronic anxiety Plan: The patient was seen and evaluated Medications reviewed Continue bronchodilators, IV Solu-Medrol Continue antibiotics for now Follow-up chest x-ray on 03/14/2022 Normal pro calcitonin May require bronchoscopy with biopsies Educated regarding the importance of complete smoking cessation NicoDerm patch applied We will continue to follow I have personally seen and examined the patient, performed the documentation and the assessment and plan as written. Number of minutes spent on the visit: 10.
--- NOTE | 2022-03-12 15:48 | P.PN ---
Subjective This is a pleasant 61 years old male with past medical history of COPD, GERD/Reflux, Hyperlipidemia, Hypertension. pre diabetes, sciatica, chronic back pain, migraines Patient presents because of slowly progressive breathing difficulty over 60 days, his PCP on production analyst is Dr. Tobin and he talked to the patient to use to trilogy with no improvement Dr. Tobin asked him to stop trilogy and go back to his old breathing regimens but still if no improvement then to come to emergency room. Also patient complaining of from dry coughing but no chest pain. He smoked about 1.5 pack per day and he was counseled to quit and he has a neurologic headache bodyaches weakness sob. nonproductive cough. states fever at home. lung sounds diminished lower lobes rhonchi to upper lobes Vitas looks stable, afebrile, saturating 94% on room air on admission. CBC INR 0.9 Sodium 135, creatinine normal. Liver enzymes and troponin are negative. Influenza and covid R undetected CTA of the chest showed no pulmonary embolism, right lower lobe pneumonic consolidation and follow-up recommended to show clearing EKG showing normal sinus rhythm at [address]-T changes. Patient emergency room started on Augmentin and IV Solu-Medrol 60 mg. Also received 1 dose of ceftriaxone. 03/12/2022 Patient breathing improving slowly and gradually, he has no chest pain but still coughing with lose phlegm which is improving with medicine as per patient Still has some limited air entry. He is on room air saturating 91-93% procalcitonin is negative He is continued on ceftriaxone and Zithromax and IV Solu-Medrol Pulmonary team are considering bronchoscopy Objective - Vital Signs Vital signs: Vital Signs Temp 97.8 F 03/12/22 07:22 Pulse 76 03/12/22 12:09 Resp 16 03/12/22 07:22 BP 107/63 03/12/22 07:22 Pulse Ox 93 L 03/12/22 09:26 FiO2 21 03/11/22 04:01 Intake & Output 03/11/22 03/12/22 03/12/22 18:59 06:59 18:59 Intake Total 1080 720 Balance 1080 720 Intake: Oral 1080 720 Other: # Voids 3 2 - Exam GENERAL: The patient is alert and oriented x3, not in any acute distress. Well developed, well nourished. HEENT: Pupils are round and equally reacting to light. EOMI. No scleral icterus. No conjunctival pallor. Normocephalic, atraumatic. No pharyngeal erythema. No thyromegaly. CARDIOVASCULAR: S1 and S2 present. No murmurs, rubs, or gallops. -PULMONARY: Chest is clear to auscultation, no wheezing or crackles. Mild tachypnea with limited air entry on both sides ABDOMEN: Soft, nontender, nondistended, normoactive bowel sounds. No palpable organomegaly. MUSCULOSKELETAL: No joint swelling or deformity. EXTREMITIES: No cyanosis, clubbing, or pedal edema. NEUROLOGICAL: Gross neurological examination did not reveal any focal deficits. SKIN: No rashes. no petechiae. - Labs CBC & Chem 7: 03/11/22 10:35 03/10/22 20:21 Labs: Abnormal Lab Results - Last 24 Hours (Table) 03/11/22 Range/Units 10:35 Neutrophils # 9.0 H (1.3-7.7) k/uL Lymphocytes # 0.6 L (1.0-4.8) k/uL Microbiology - Last 24 Hours (Table) 03/10/22 20:20 Blood Culture - Preliminary Blood No Growth after 24 hours 03/10/22 20:21 Blood Culture - Preliminary Blood No Growth after 24 hours Assessment and Plan Assessment: Possible Right lower lobe pneumonia Acute COPD exacerbation Nicotine dependence Hyperlipidemia Hypertension History of GERD Chronic back pain History of migraine Plan: Continue with antibiotic, ceftriaxone and Zithromax Continue with steroids Continue with bronchodilator Pulmonary consult Labs and medication were reviewed.. Continue same treatment. Continue with symptomatic treatment. Resume home medication. Monitor lytes and vitals. DVT and GI prophylaxis. Further recommendations as per clinical course of the patient DVT prophylaxis: Subcutaneous heparin GI Prophylaxis: Pepcid Prognosis is guarded
[2022-03-13] MEDS: methylPREDNISolone SOD SUCCI 125 MG/2 ML VIAL IV SCH ×4 (06:38→23:19)
[2022-03-13] MEDS: IPRATROPIUM-ALBUTEROL 3 ML NEB INHALATION SCH ×4 (07:20→19:12)
[2022-03-13] MEDS: SYMBICORT 160-4.5 MCG INHALER INHALATION SCH ×2 (07:20→19:12)
[2022-03-13] MEDS: NICOTINE 14MG/24HR PATCH TRANSDERM SCH (09:29)
[2022-03-13] MEDS: ALPRAZolam 0.5 MG TAB PO PRN ×3 (09:29→23:19)
[2022-03-13] MEDS: FAMOTIDINE 20 MG TAB PO SCH ×2 (09:29→21:11)
[2022-03-13] MEDS: ATORVASTATIN 20 MG TAB PO SCH (09:29)
[2022-03-13] MEDS: BENZONATATE 100 MG CAP PO PRN ×2 (09:29→21:29)
[2022-03-13] MEDS: DILTIAZEM ORAL 60 MG TAB PO SCH ×3 (09:30→21:11)
[2022-03-13] MEDS: HEPARIN SODIUM,PORCINE/PF 5,000 UNIT/0.5 ML SYRINGE SQ SCH ×3 (09:31→21:12)
[2022-03-13] MEDS: metFORMIN 500 MG TAB PO SCH (10:23)
--- NOTE | 2022-03-13 10:49 | P.PN ---
Subjective Progress Note Date: 03/13/22 I'm seeing this patient today in consultation for an right lower lobe pneumonia found on chest. This is a pleasant 61 year old male with a past medical history of COPD, current smoker 1.5 packs per day, GERD, hyperlipidemia, hypertension, prediabetes, chronic back pain. Patient presented to [facility] yesterday for persistent shortness of breath lasting over 2 months and associated nonproductive cough. he is treated his cough with some old cough medicine. He also had fevers and chills. He denies any chest pain or hemoptysis. patient is currently sitting up in bed, on room air, in no acute distress. patient's Chest CTA from today showed a right lower lobe consolidation, chronic emphysema like changes, without pulmonary embolism. Patient's CBC patient's CBC from today shows a WBC count of 10, hemoglobin 13.8, hematocrit 41.3, platelets 281,000. Patient's BMP from today shows a sodium 135, potassium 4.2, chloride 102, serum CO2 26, BUN 13, creatinine 0.61, glucose 103. patient was negative for influenza, RSV, coronavirus. patient is currently being covered with a combination of azithromycin and Rocephin. patient is currently afebrile. Patient is also receiving bronchodilators and IV Solu- Medrol. vital signs are stable. The patient is seen today 03/12/2022 in follow-up on the regular medical floor. He is currently sitting up in a chair at the bedside. Awake and alert in no acute distress. He continues with a loose nonproductive cough. He is maintaining good O2 saturations in the 90s on room air. He's been afebrile. Hemodynamically stable. Blood cultures reveal no growth. No new labs today. He remains on Symbicort, DuoNeb inhalations, IV Solu-Medrol. Antibiotics in the form of ceftriaxone and azithromycin. Pro-calcitonin 0.04. NicoDerm patch in place. Heparin for DVT prophylaxis. Tessalon Perles and Robitussin for cough. The patient is seen today 03/13/2022 in follow-up on the regular medical floor. He's been up ambulating in the hallway. Awake and alert in no acute distress. Maintaining O2 saturations in the 90s on room air. No worsening cough or congestion. No hemoptysis. He is continued on Symbicort, DuoNeb inhalations, IV Solu medrol. NicoDerm patch in place. Heparin for DVT prophylaxis. Antibiotics in the form of ceftriaxone. Completed azithromycin. Pro-calcitonin is normal and there is concern regarding the right lower lobe consolidated area be possibly a lung mass versus pneumonia. Objective - Vital Signs Vital signs: Vital Signs Temp 98.1 F 03/13/22 07:35 Pulse 73 03/13/22 07:35 Resp 16 03/13/22 07:35 BP 120/68 03/13/22 07:35 Pulse Ox 96 03/13/22 07:35 FiO2 21 03/11/22 04:01 Intake & Output 03/12/22 03/13/22 03/13/22 18:59 06:59 18:59 Intake Total 800 Balance 800 Intake: Oral 800 Other: # Voids 3 2 - Exam GENERAL EXAM: Alert, active, pleasant 61-year-old male, on room air, comfortable in no apparent distress. HEAD: Normocephalic. EYES: Normal reaction of pupils, equal size. NOSE: Clear with pink turbinates. THROAT: No erythema or exudates. NECK: No masses, no JVD. CHEST: No chest wall deformity. LUNGS: Equal air entry with bilateral scattered rhonchi more so on the right lung. CVS: S1 and S2 normal with no audible murmur, regular rhythm. ABDOMEN: No hepatosplenomegaly, normal bowel sounds, no guarding or rigidity. SPINE: No scoliosis or deformity SKIN: No rashes CENTRAL NERVOUS SYSTEM: No focal deficits, tone is normal in all 4 extremities. EXTREMITIES: There is no peripheral edema. No clubbing, no cyanosis. Peripheral pulses are intact. - Labs CBC & Chem 7: 03/11/22 10:35 03/10/22 20:21 Labs: Microbiology - Last 24 Hours (Table) 03/10/22 20:20 Blood Culture - Preliminary Blood No Growth after 48 hours 03/10/22 20:21 Blood Culture - Preliminary Blood No Growth after 48 hours Assessment and Plan Assessment: Acute community-acquired pneumonia of the right lower lobe. Currently being cove red with Rocephin completed azithromycin though Procalcitonin 0.04. Computed tomography scan reveals a right lower lobe masslike consolidation measuring 3.6 cm. May lean towards malignancy versus pneumonia. Acute COPD exacerbation secondary to above. Patient was taking albuterol and Trelegy outpatient. He decided to quit his Trelegy inhaler due to some side effects. Chronic and ongoing tobacco dependence Hypertension Hyperlipidemia GERD without esophagitis Chronic back pain Chronic anxiety Plan: The patient was seen and evaluated Discussed CT findings in detail with the patient Malignancy versus pneumonia Procalcitonin is normal Will complete 5 more days of antibiotics prophylactically Recommending PET scan in the outpatient setting Cleared for discharge from the pulmonary standpoint Follow-up in one week with Dr. Tobin I have personally seen and examined the patient, performed the documentation and the assessment and plan as written. Number of minutes spent on the visit: 10.
--- NOTE | 2022-03-13 12:49 | P.PN ---
Subjective This is a pleasant 61 years old male with past medical history of COPD, GERD/Reflux, Hyperlipidemia, Hypertension. pre diabetes, sciatica, chronic back pain, migraines Patient presents because of slowly progressive breathing difficulty over 60 days, his PCP on [facility] is Dr. Tobin and he talked to the patient to use to trilogy with no improvement Dr. Tobin asked him to stop trilogy and go back to his old breathing regimens but still if no improvement then to come to emergency room. Also patient complaining of from dry coughing but no chest pain. He smoked about 1.5 pack per day and he was counseled to quit and he has a neurologic headache bodyaches weakness sob. nonproductive cough. states fever at home. lung sounds diminished lower lobes rhonchi to upper lobes Vitas looks stable, afebrile, saturating 94% on room air on admission. CBC INR 0.9 Sodium 135, creatinine normal. Liver enzymes and troponin are negative. Influenza and covid R undetected CTA of the chest showed no pulmonary embolism, right lower lobe pneumonic consolidation and follow-up recommended to show clearing EKG showing normal sinus rhythm at [address]-T changes. Patient emergency room started on Augmentin and IV Solu-Medrol 60 mg. Also received 1 dose of ceftriaxone. 03/12/2022 Patient breathing improving slowly and gradually, he has no chest pain but still coughing with lose phlegm which is improving with medicine as per patient Still has some limited air entry. He is on room air saturating 91-93% procalcitonin is negative He is continued on ceftriaxone and Zithromax and IV Solu-Medrol Pulmonary team are considering bronchoscopy 03/13/2022 Patient clinically is doing well, currently he is on air. No other new symptoms. No pain. Pulmonary team were considering pneumonia versus lung malignancy based upon his CAT scan finding was negative forcalcitonin 2 Recommendation to continue 5 days of antibiotic and discharged for outpatient follow-up with Dr. Tobin in one week for possible PET scan. Discussed the plan with the patient and he is agreeable. Patient's wants to be discharged tomorrow morning Objective - Vital Signs Vital signs: Vital Signs Temp 98.1 F 03/13/22 07:35 Pulse 73 03/13/22 07:35 Resp 16 03/13/22 07:35 BP 120/68 03/13/22 07:35 Pulse Ox 96 01/29/23 07:35 FiO2 21 03/11/22 04:01 Intake & Output 03/12/22 03/13/22 03/13/22 18:59 06:59 18:59 Intake Total 800 Balance 800 Intake: Oral 800 Other: # Voids 3 2 - Exam GENERAL: The patient is alert and oriented x3, not in any acute distress. Well developed, well nourished. HEENT: Pupils are round and equally reacting to light. EOMI. No scleral icterus. No conjunctival pallor. Normocephalic, atraumatic. No pharyngeal erythema. No thyromegaly. CARDIOVASCULAR: S1 and S2 present. No murmurs, rubs, or gallops. -PULMONARY: Chest is clear to auscultation, no wheezing or crackles. Mild tachypnea with limited air entry on both sides ABDOMEN: Soft, nontender, nondistended, normoactive bowel sounds. No palpable organomegaly. MUSCULOSKELETAL: No joint swelling or deformity. EXTREMITIES: No cyanosis, clubbing, or pedal edema. NEUROLOGICAL: Gross neurological examination did not reveal any focal deficits. SKIN: No rashes. no petechiae. - Labs CBC & Chem 7: 03/11/22 10:35 03/10/22 20:21 Labs: Microbiology - Last 24 Hours (Table) 03/10/22 20:20 Blood Culture - Preliminary Blood No Growth after 48 hours 03/10/22 20:21 Blood Culture - Preliminary Blood No Growth after 48 hours Assessment and Plan Assessment: Possible Right lower lobe pneumonia Acute COPD exacerbation Nicotine dependence Hyperlipidemia Hypertension History of GERD Chronic back pain History of migraine Plan: Continue with antibiotic, ceftriaxone and Zithromax Continue with steroids Continue with bronchodilator Pulmonary consult. Patient will need follow-up with Dr. Monroe as an outpatient, he will need PET scan and possible further workup, patient and at bedside. Informed, risks including but not limited to cancer explained for them and they verbalized understanding and acceptance Labs and medication were reviewed.. Continue same treatment. Continue with symptomatic treatment. Resume home medication. Monitor lytes and vitals. DVT and GI prophylaxis. Further recommendations as per clinical course of the patient DVT prophylaxis: Subcutaneous heparin GI Prophylaxis: Pepcid Prognosis is guarded Possible discharge in the morning
[2022-03-13] MEDS: AZITHROMYCIN 500 MG in SODIUM CHLORIDE 0.9% 250 ML IVPB SCH (15:16)
[2022-03-13] MEDS: guaiFENesin SYRUP 100MG/5ML 200 MG/10 ML CUP PO PRN (23:19)
[2022-03-14] MEDS: BENZONATATE 100 MG CAP PO PRN (05:20)
[2022-03-14] MEDS: methylPREDNISolone SOD SUCCI 125 MG/2 ML VIAL IV SCH (05:21)
--- NOTE | 2022-03-14 07:12 | XR ---
EXAMINATION TYPE: XR chest 1V portable DATE OF EXAM: 03/14/2022 6:57 AM COMPARISON: Chest radiographs from 03/10/2022, CTA chest 03/10/2022. TECHNIQUE: XR chest 1V portable Portable AP radiograph of the chest. CLINICAL INDICATION:Male, 61 years old with history of rll mass/pneumonia; FINDINGS: Lungs/Pleura: There is flattening of the diaphragm with increased lucency of the lungs. No evidence o f pneumothorax or pleural effusion. Right lower lobe consolidation is not appreciated on today's exam . Pulmonary vascularity: Unremarkable. Heart/mediastinum: Cardiomediastinal silhouette is unremarkable. Musculoskeletal: No acute osseous pathology. Dorsal osteophytosis of the thoracic spine. IMPRESSION: COPD changes with nonvisualization of previously seen right lower lobe consolidation on CTA chest. Ho wever this may be due to only single frontal view. Consider two-view chest radiograph for further shahzad luation.
[2022-03-14] MEDS: DILTIAZEM ORAL 60 MG TAB PO SCH (08:38)
[2022-03-14] MEDS: FAMOTIDINE 20 MG TAB PO SCH (08:39)
[2022-03-14] MEDS: ATORVASTATIN 20 MG TAB PO SCH (08:39)
[2022-03-14] MEDS: NICOTINE 14MG/24HR PATCH TRANSDERM SCH (08:39)
[2022-03-14] MEDS: metFORMIN 500 MG TAB PO SCH (08:39)
[2022-03-14 08:40] VITALS: BP 142/67; RESP 20; TEMP 98.3
[2022-03-14] MEDS: HEPARIN SODIUM,PORCINE/PF 5,000 UNIT/0.5 ML SYRINGE SQ SCH (08:41)
[2022-03-14] MEDS: ALPRAZolam 0.5 MG TAB PO PRN (08:47)
[2022-03-14] MEDS: IPRATROPIUM-ALBUTEROL 3 ML NEB INHALATION SCH (08:52)
[2022-03-14] MEDS: SYMBICORT 160-4.5 MCG INHALER INHALATION SCH (08:53)
[2022-03-14 09:09] VITALS: PULSE 74
--- NOTE | 2022-03-14 11:36 | P.PN ---
Subjective Progress Note Date: 03/14/22 Principal diagnosis: Shortness of breath, right lower lobe masslike consolidation I'm seeing this patient today in consultation for an right lower lobe pneumonia found on chest. This is a pleasant 61 year old male with a past medical history of COPD, current smoker 1.5 packs per day, GERD, hyperlipidemia, hypertension, prediabetes, chronic back pain. Patient presented to [facility] yesterday for persistent shortness of breath lasting over 2 months and assoc iated nonproductive cough. he is treated his cough with some old cough medicine. He also had fevers and chills. He denies any chest pain or hemoptysis. patient is currently sitting up in bed, on room air, in no acute distress. patient's Chest CTA from today showed a right lower lobe consolidation, chronic emphysema like changes, without pulmonary embolism. Patient's CBC patient's CBC from today shows a WBC count of 10, hemoglobin 13.8, hematocrit 41.3, platelets 281,000. Patient's BMP from today shows a sodium 135, potassium 4.2, chloride 102, serum CO2 26, BUN 13, creatinine 0.61, glucose 103. patient was negative for influenza, RSV, coronavirus. patient is currently being covered with a combination of azithromycin and Rocephin. patient is currently afebrile. Patient is also receiving bronchodilators and IV Solu-Medrol. vital signs are stable. The patient is seen today 03/12/2022 in follow-up on the regular medical floor. He is currently sitting up in a chair at the bedside. Awake and alert in no acute distress. He continues with a loose nonproductive cough. He is maintaining good O2 saturations in the 90s on room air. He's been afebrile. Hemodynamically stable. Blood cultures reveal no growth. No new labs today. He remains on Symbicort, DuoNeb inhalations, IV Solu-Medrol. Antibiotics in the form of ceftriaxone and azithromycin. Pro-calcitonin 0.04. NicoDerm patch in place. Heparin for DVT prophylaxis. Tessalon Perles and Robitussin for cough. The patient is seen today 03/13/2022 in follow-up on the regular medical floor. He's been up ambulating in the hallway. Awake and alert in no acute distress. Maintaining O2 saturations in the 90s on room air. No worsening cough or congestion. No hemoptysis. He is continued on Symbicort, DuoNeb inhalations, IV Solu medrol. NicoDerm patch in place. Heparin for DVT prophylaxis. Antibiotics in the form of ceftriaxone. Completed azithromycin. Pro-calcitonin is normal and there is concern regarding the right lower lobe consolidated area be possibly a lung mass versus pneumonia. Following this patient today 03/14/2022 and follow-up on a regular medical floor. Patient is currently sitting at the edge of the bed, on room air, no acute distress. Patient denies any current respiratory complaints, and his cough is improved. Chest x-ray from today failed to demonstrate the previously seen right lower lobe masslike consolidation, however, this may need to be due to limited single frontal view. There were also some background COPD changes. We recommend follow up outpatient PET scan on discharge. No new labs to review today. Patient's pro-calcitonin level from 03/11/2022 was low at 0.04. Remains afebrile. Continues on empiric Rocephin. He continues on DuoNeb nebulization, Simcor inhaler, and IV Solu-Medrol. Vital signs are stable. Objective - Vital Signs Vital signs: Vital Signs Temp 98.3 F 03/14/22 08:00 Pulse 74 03/14/22 09:09 Resp 20 03/14/22 08:00 BP 142/67 03/14/22 08:00 Pulse Ox 94 L 03/14/22 08:56 FiO2 21 03/11/22 04:01 Intake & Output 03/13/22 03/14/22 03/14/22 18:59 06:59 18:59 Intake Total 1500 Output Total 0 Balance 1500 0 Intake: Oral 1500 Output: Urine 0 Other: # Voids 4 - Exam GENERAL EXAM: Alert, active, pleasant 61-year-old male, on room air, comfortable in no apparent distress. HEAD: Normocephalic. EYES: Normal reaction of pupils, equal size. NOSE: Clear with pink turbinates. THROAT: No erythema or exudates. NECK: No masses, no JVD. CHEST: No chest wall deformity. LUNGS: Equal air entry with clear lung sounds throughout. No wheezes, rhonchi, crackles. On room air. CVS: S1 and S2 normal with no audible murmur, regular rhythm. ABDOMEN: No hepatosplenomegaly, normal bowel sounds, no guarding or rigidity. SPINE: No scoliosis or deformity SKIN: No rashes CENTRAL NERVOUS SYSTEM: No focal deficits, tone is normal in all 4 extremities. EXTREMITIES: There is no peripheral edema. No clubbing, no cyanosis. Peripheral pulses are intact. - Labs CBC & Chem 7: 03/11/22 10:35 03/10/22 20:21 Labs: Microbiology - Last 24 Hours (Table) 03/10/22 20:20 Blood Culture - Preliminary Blood No Growth after 72 hours 03/10/22 20:21 Blood Culture - Preliminary Blood No Growth after 72 hours Assessment and Plan Assessment: Acute community-acquired pneumonia of the right lower lobe. Currently being covered with Rocephin completed azithromycin though Procalcitonin 0.04. Computed tomography scan reveals a right lower lobe masslike consolidation measuring 3.6 cm. May lean towards malignancy versus pneumonia. We recommend follow-up outpatient PET scan on discharge. Acute COPD exacerbation secondary to above. Patient was taking albuterol and Trelegy outpatient. He decided to quit his Trelegy inhaler due to some side effects. Chronic and ongoing tobacco dependence Hypertension Hyperlipidemia GERD without esophagitis Chronic back pain Chronic anxiety plan Patients medication, labs, chest x-ray were reviewed Switch to oral antibiotic on discharge Continue bronchodialators and Symbicort inhaler Prednisone taper in preparation for discharge. follow-up office visit with Dr. Tobin on 03/15/2022 at 1:30 PM Recommend follow-up outpatient PET scan From a pulmonary standpoint, patient is cleared for discharge. I have personally seen and examined the patient, performed the documentation and the assessment and plan as written. Number of minutes spent on the visit: 10 Time with Patient: Less than 30
--- NOTE | 2022-03-15 06:16 | P.DS ---
Providers Date of admission: 03/10/22 23:07 Attending physician: Tanya Barnes Consults: 03/11/22 13:16 Consult Physician Urgent Consulting Provider: Chad Tobin Consult Reason/Comments: pna Do you want consulting provider notified?: Yes Primary care physician: Chad Tobin Hospital Course: Diagnoses: Possible Right lower lobe pneumonia, versus tumor. Patient will need PET scan as an outpatient Acute COPD exacerbation. Significantly improved Nicotine dependence Hyperlipidemia Hypertension History of GERD Chronic back pain History of migraine Hospital course: This is a pleasant 61 years old male with past medical history of COPD, GERD/Reflux, Hyperlipidemia, Hypertension. pre diabetes, sciatica, chronic back pain, migraines Patient presents because of slowly progressive breathing difficulty over 60 days, his PCP on [facility] is Dr. Tobin and he talked to the patient to use to trilogy with no improvement Dr. Tobin asked him to stop trilogy and go back to his old breathing regimens but still if no improvement then to come to emergency room. Also patient complaining of from dry coughing but no chest pain. Patient evaluated by pulmonary service, COPD exacerbation and dried pneumonia is suspected he was treated with IV Solu-Medrol and ceftriaxone and Zithromax. However his pro-calcitonin was normal and he has no fever or leukocytosis however patient showed interval improvement anticipated and significantly improved and he does not need oxygen upon discharge However pulmonary service recommended patient get a PET scan as an outpatient to rule out tumor, patient verbalized understanding of these instructions and he has appointment tomorrow with Dr. tobin his [facility] and primary doctor Other than that patient is back to baseline with no new neurological, GI or urological symptoms. Patient gets his normal and he tolerates that well. No chest pain, breathing significantly improved and he is on room air. Patient was cleared for discharge by pulmonary service. Problems and management plan were discussed with the patient and he verbalized understanding and acceptance Patient was found stable and can be discharged home in guarded prognosis however he needs follow-up as an outpatient. Patient was instructed to follow up with PCP Dr. Lott within one week and patient agrees and states that tomorrow at 1:30 PM he has appointment with him Physical exam Gen: patient is a AAOx3, no distress CVS: S1-S2, RRR, no murmur Lungs: B/L CTA, no wheezing Abdomen: soft, no distention, no tenderness, positive bowel sounds Extremity: no leg edema or induration Time spent more than 35 minutes Patient Condition at Discharge: Fair Plan - Discharge Summary Discharge Rx Participant: No New Discharge Prescriptions: New Nicotine 14Mg/24Hr Patch [Habitrol] 1 patch TRANSDERM DAILY #3 patch cefUROXime axetiL [Cefuroxime] 500 mg PO BID 5 Days #10 tab predniSONE 10 mg PO DIRECTED #18 tab Continue Rizatriptan Benzoate [Rizatriptan] 10 mg PO DAILY PRN PRN Reason: Migraine Headache ALPRAZolam [Xanax] 0.5 mg PO TID Aspirin 81 mg PO DAILY Zinc Gluconate [Zinc] 50 mg PO AC-SUPPER Potassium Citrate 99 mg PO DAILY Cyanocobalamin (Vitamin B-12) [Vitamin B-12] 1,000 mcg PO DAILY Albuterol Sulfate [Albuterol Sulfate Hfa] 2 puff PO RT-Q6H PRN PRN Reason: Shortness Of Breath Cinnamon Bark [Cinnamon] 500 mg PO DAILY Cholecalciferol (Vitamin D3) [Vitamin D3 (3000 Iu)] 75 mcg PO DAILY Diltiazem Cd [Cardizem CD] 120 mg PO W/LUNCH Atorvastatin [Lipitor] 20 mg PO HS Discontinued Ibuprofen/Acetaminophen [Advil Dual Action 250Mg-125Mg] 1 tab PO BID Discharge Medication List ALPRAZolam [Xanax] 0.5 mg PO TID 10/30/18 [History] Rizatriptan Benzoate [Rizatriptan] 10 mg PO DAILY PRN 10/30/18 [History] Albuterol Sulfate [Albuterol Sulfate Hfa] 2 puff PO RT-Q6H PRN 03/11/22 [History] Aspirin 81 mg PO DAILY 03/11/22 [History] Atorvastatin [Lipitor] 20 mg PO HS 03/11/22 [History] Cholecalciferol (Vitamin D3) [Vitamin D3 (3000 Iu)] 75 mcg PO DAILY 03/11/22 [History] Cinnamon Bark [Cinnamon] 500 mg PO DAILY 03/11/22 [History] Cyanocobalamin (Vitamin B-12) [Vitamin B-12] 1,000 mcg PO DAILY 03/11/22 [History] Diltiazem Cd [Cardizem CD] 120 mg PO W/LUNCH 03/11/22 [History] Potassium Citrate 99 mg PO DAILY 03/11/22 [History] Zinc Gluconate [Zinc] 50 mg PO AC-SUPPER 03/11/22 [History] Nicotine 14Mg/24Hr Patch [Habitrol] 1 patch TRANSDERM DAILY #3 patch 03/14/22 [Rx] cefUROXime axetiL [Cefuroxime] 500 mg PO BID 5 Days #10 tab 03/14/22 [Rx] predniSONE 10 mg PO DIRECTED #18 tab 03/14/22 [Rx] Follow up Appointment(s)/Referral(s): Chad Tobin DO [Primary Care Provider] - 03/15/22 1:30 pm (you have appointment with him tomorrow 03/15/2022 at 1:30 pm ) Patient Instructions/Handouts: How to Stop Smoking (DC), COPD (Chronic Obstructive Pulmonary Disease) (DC), Pneumonia (DC) Activity/Diet/Wound Care/Special Instructions: low carbohydrate diet while on steroids activity is restricted till you see your doctor Discharge Disposition: HOME SELF-CARE
== END 2022-03-14 10:45 | disposition home or self-care (01) | DRG 195 ==
LOC: EC 19:50 → 4SSUR 23:07
PROVIDERS: ADMIT Hospitalist; ATTEND Hospitalist
DX: J18.9 Pneumonia, unspecified organism (principal); E78.5 Hyperlipidemia, unspecified; K21.9 Gastro-esophageal reflux disease without esophagitis; I10 Essential (primary) hypertension; J20.9 Acute bronchitis, unspecified; J43.9 Emphysema, unspecified; F41.9 Anxiety disorder, unspecified; G89.29 Other chronic pain; E86.0 Dehydration; Z79.82 Long term (current) use of aspirin; Z79.899 Other long term (current) drug therapy; G43.909 Migraine, unspecified, not intractable, without status migrainosus; M54.30 Sciatica, unspecified side; Z20.822 Contact with and (suspected) exposure to COVID-19
CPT/HCPCS: 36415; 71045; 71046; 71275; 80053; 83605; 83735; 83880; 84145; 84484; 85025; 85379; 85610; 85730; 87040; 87636; 93005; 94640; 94760; 96361; 96374; 96375; 99285

== ENCOUNTER → 2022-03-15 | Outpatient (CLI) | payer SELFPAY ==
[2022-03-15 14:50] LABS: African American GFR (CKD) >90 (>60 ml/min/1.73 sqM); Blood Urea Nitrogen 26 mg/dL (9-20); Non-African American GFR(CKD) 81 (>60 ml/min/1.73 sqM)
--- NOTE | 2022-03-15 15:34 | CT ---
EXAMINATION TYPE: CT chest w con CT DLP: 288.2 mGycm, Automated exposure control for dose reduction was used. DATE OF EXAM: 03/15/2022 3:14 PM COMPARISON: chest radiograph 03/14/2022, CTA chest 03/10/2022. CLINICAL INDICATION:Male, 61 years old with history of J44.9 copd; PHH, f/u SOB, COPD TECHNIQUE: Multiple axial images were obtained through the chest following the administration of 70 c c of Isovue 300. FINDINGS: LUNGS/ PLEURA: No pleural effusion. Improvement in right lower lobe airspace opacities with continued around masslike opacity in the right lower lobe subpleural location measuring 3.2 x 2.0 cm with a fe w rounded coarse calcifications (series 4, image 59). Scarring demonstrated within the left lower lob e. Moderate centrilobular emphysematous changes demonstrated. No new or enlarging pulmonary nodules. AIRWAY: Patent and unremarkable.. HEART: Size within normal limits. No pericardial effusion. Mild coronary arterial calcifications. MEDIASTINUM: No gross evidence of adenopathy. VASCULATURE: No aortic aneurysm. MUSCULOSKELETAL: No acute osseous abnormalities . No aggressive osseous lesion. Two-level degenerativ e disc disease. Mild retrolisthesis of L2 on L3. SOFT TISSUES/LYMPH NODES: Unremarkable. LOWER NECK: No significant findings. UPPER ABDOMEN: Subcentimeter hypodense focus within the splenic dome which is too small to characteri ze but likely is benign. IMPRESSION: 1. Improvement in right lower lobe airspace opacities with persistent masslike opacity in the right lower lobe measuring up to 3.2 cm. Etiologies include infectious process versus round atelectasis marco a jeronimo neoplasm. Further evaluation with PET/CT is recommended. 2. COPD changes.
== END | disposition home or self-care (01) ==
LOC: RADCTMAIN 14:06
PROVIDERS: ATTEND Internal Medicine Critical Care Medicine
DX: J44.9 Chronic obstructive pulmonary disease, unspecified (principal); R91.8 Other nonspecific abnormal finding of lung field
CPT/HCPCS: 82565; 84520; 71260; 36415; Q9967

== ENCOUNTER 2022-06-14 07:28 | Day surgery (SDC) | payer SELFPAY ==
[2022-06-14] MEDS ORDERED: LACTATED RINGERS 1,000 ML IV SCH (08:02)
[2022-06-14 08:26] LABS: Glucose,Whole Blood 125 mg/dL (70-110)
[2022-06-14 08:28] VITALS: RESP 18; TEMP 98
[2022-06-14] MEDS ORDERED: PROPOFOL 10 MG/ML 20 ML VIAL IV ONE (08:51)
[2022-06-14] MEDS ORDERED: LIDOCAINE 2% INJ 20 MG/ML (2 ML VIAL) ONE (08:51)
--- NOTE | 2022-06-14 09:02 | P.PCN ---
Date of Procedure: 06/14/22 Procedure(s) Performed: BRIEF HISTORY: Patient is a 62-year-old, pleasant, white female scheduled for an upper endoscopy for evaluation of epigastric pain and abnormal PET scan that showed increased uptake in the gastric cardia. He was noted to have a lung nodule and hence had a PET scan done in March of this year. He denies any heartburn. Reports no nausea vomiting.. PROCEDURE PERFORMED: Esophagogastroduodenoscopy with biopsy. PREOPERATIVE DIAGNOSIS: Epigastric burning pain and abnormal PET scan. IV sedation per anesthesia. PROCEDURE: After informed consent was obtained, the patient was brought into the endoscopy unit. IV sedation was administered by Anesthesia under continuous monitoring. Initially the Olympus GIF-140 video endoscope was inserted into the mouth. Esophagus intubated without any difficulty. It was gradually advanced into the stomach and duodenum and carefully examined. The bulb and the second part of the duodenum appeared normal. The scope at this time was withdrawn to the stomach, adequately insufflated with air, and upon careful examination, mucosa of the antrum had scattered erosions and biopsies were done from this area. Mucosa, body, cardia and the fundus appeared normal. No abnormality seen in the cardia of the stomach. The scope was then withdrawn into the esophagus. The GE junction was located at 45 cm from the incisors. At the GE junction there were 2 superficial erosions and one ulceration consistent with LA grade C reflux esophagitis. The rest of the esophagus appeared normal and the patient tolerated the procedure well. IMPRESSION: 1. 2 superficial erosions and one ulceration in the distal esophagus at the GE junction consistent with LA grade C reflux esophagitis. 2. Mild antral gastritis. 3. No abnormality noted in the gastric cardia. RECOMMENDATIONS: The findings of this examination were discussed with the patient as well as his family. He was advised to follow with the biopsy results. In the meantime he will be started on omeprazole 20 mg daily and was briefly educated about antireflux measures.
[2022-06-14 09:50] VITALS: BP 127/76; PULSE 76
== END 2022-06-14 10:08 | disposition home or self-care (01) ==
LOC: ORWHC2ENDO 07:28
PROVIDERS: ATTEND Internal Medicine Gastroenterology
DX: K29.50 Unspecified chronic gastritis without bleeding (principal); K22.10 Ulcer of esophagus without bleeding; I10 Essential (primary) hypertension; E78.5 Hyperlipidemia, unspecified; J44.9 Chronic obstructive pulmonary disease, unspecified; F17.200 Nicotine dependence, unspecified, uncomplicated; E07.9 Disorder of thyroid, unspecified; K21.9 Gastro-esophageal reflux disease without esophagitis; Z79.890 Hormone replacement therapy; Z79.899 Other long term (current) drug therapy; Z79.51 Long term (current) use of inhaled steroids; Z79.82 Long term (current) use of aspirin
CPT/HCPCS: 88305; 43239; J2704; J2001

== ENCOUNTER 2022-07-21 11:26 | Emergency (ER) | payer OTHER ==
[2022-07-21 12:02] VITALS: TEMP 97.9
[2022-07-21] MEDS ORDERED: IPRATROPIUM-ALBUTEROL 3 ML NEB INHALATION STA (12:18)
[2022-07-21] MEDS ORDERED: predniSONE 20 MG TAB PO STA (12:18)
--- NOTE | 2022-07-21 12:45 | XR ---
EXAMINATION TYPE: XR chest 2V DATE OF EXAM: 07/21/2022 COMPARISON: 03/14/2022 HISTORY: 62 year-old male shortness of breath, difficulty breathing TECHNIQUE: PA and lateral views FINDINGS: The cardiomediastinal silhouette, aorta, and pulmonary vasculature are within normal limits. Hyperinf lation. Lungs and pleural spaces are clear. IMPRESSION: COPD. Otherwise, no acute process seen.
--- NOTE | 2022-07-21 13:16 | ED ---
SOB HPI - General Chief Complaint: Shortness of Breath Stated Complaint: sob Time Seen by Provider: 07/21/22 12:05 Source: patient Mode of arrival: wheelchair Limitations: no limitations - History of Present Illness Initial Comments: 62-year-old male with past medical history of COPD, continued nicotine use, pulmonary nodules who presents to the emergency department reporting shortness of breath. States that for the past 3 days he has had worsening shortness of breath. He has been using his inhaler every 4 hours without any improvement. Admits to a productive cough. No sick contacts. No fevers, nausea or vomiting. He saw an orthopedic surgeon for sciatica and was placed on a Medrol Dosepak. States that the steroid burst did not help his breathing. He denies chest pain. No history of cardiac disease. No hemoptysis. Last antibiotic use was in February. He does follow with Dr. Boss and Dr. López. He has a lung nodule which is being watched. He had a CT on June 20 which demonstrated that the area had shrunk. Next follow-up is in 1 year. He denies known history of cancer. No heart failure. No lower extremity swelling. No history of DVT or PE. No other alleviating, precipitating or modifying factors - Related Data Home Medications Medication Instructions Recorded Confirmed ALPRAZolam [Xanax] 0.5 mg PO TID 10/30/18 06/14/22 Rizatriptan Benzoate [Rizatriptan] 10 mg PO DAILY PRN 10/30/18 06/14/22 Albuterol Sulfate [Albuterol 2 puff PO RT-Q6H PRN 03/11/22 06/14/22 Sulfate Hfa] Aspirin 81 mg PO DAILY 03/11/22 06/14/22 Atorvastatin [Lipitor] 20 mg PO HS 03/11/22 06/14/22 Cholecalciferol (Vitamin D3) 75 mcg PO DAILY 03/11/22 06/14/22 [Vitamin D3 (3000 Iu)] Cinnamon Bark [Cinnamon] 500 mg PO DAILY 03/11/22 06/14/22 Cyanocobalamin (Vitamin B-12) 1,000 mcg PO DAILY 03/11/22 06/14/22 [Vitamin B-12] Diltiazem Cd [Cardizem CD] 120 mg PO W/LUNCH 03/11/22 06/14/22 Potassium Citrate 99 mg PO DAILY 03/11/22 06/14/22 Zinc Gluconate [Zinc] 50 mg PO AC-SUPPER 03/11/22 06/14/22 Previous Rx's Medication Instructions Recorded predniSONE 10 mg PO DIRECTED #18 tab 03/14/22 Doxycycline Hyclate 100 mg PO BID 1 Days #20 tab 07/21/22 predniSONE [Deltasone] 20 mg PO BID #10 tab 07/21/22 Allergies Allergy/AdvReac Type Severity Reaction Status Date / Time No Known Allergies Allergy Verified 07/21/22 12:02 Review of Systems ROS Statement: Those systems with pertinent positive or pertinent negative responses have been documented in the HPI. ROS Other: All systems not noted in ROS Statement are negative. Past Medical History Past Medical History: COPD, GERD/Reflux, Hyperlipidemia, Hypertension Additional Past Medical History / Comment(s): pre diabetes, sciatica, chronic back pain, migraines History of Any Multi-Drug Resistant Organisms: None Reported Past Surgical History: Orthopedic Surgery Additional Past Surgical History / Comment(s): left knee arthroscopy Past Anesthesia/Blood Transfusion Reactions: No Reported Reaction Past Psychological History: Anxiety Smoking Status: Current every day smoker Past Alcohol Use History: Occasional Past Drug Use History: None Reported General Exam Limitations: no limitations General appearance: alert, in no apparent distress Head exam: Present: atraumatic, normocephalic, normal inspection Eye exam: Present: normal appearance, PERRL, EOMI. Absent: scleral icterus, conjunctival injection, periorbital swelling ENT exam: Present: normal exam, mucous membranes moist Neck exam: Present: normal inspection. Absent: tenderness, meningismus, lymphadenopathy Respiratory exam: Present: wheezes, decreased breath sounds. Absent: respiratory distress, rales, rhonchi, stridor, accessory muscle use Cardiovascular Exam: Present: regular rate, normal rhythm, normal heart sounds. Absent: systolic murmur, diastolic murmur, rubs, gallop, clicks GI/Abdominal exam: Present: soft, normal bowel sounds. Absent: distended, tenderness, guarding, rebound, rigid Extremities exam: Present: normal inspection, full ROM, normal capillary refill. Absent: tenderness, pedal edema, joint swelling, calf tenderness Back exam: Present: normal inspection Neurological exam: Present: alert, oriented X3, CN II-XII intact Psychiatric exam: Present: normal affect, normal mood Skin exam: Present: warm, dry, intact, normal color. Absent: rash Course Vital Signs 07/21/22 07/21/22 07/21/22 12:00 12:37 13:49 Temperature 97.9 F Pulse Rate 97 97 96 Respiratory 22 14 18 Rate Blood Pressure 107/71 O2 Sat by Pulse 97 98 Oximetry 07/21/22 14:33 Temperature Pulse Rate 96 Respiratory 18 Rate Blood Pressure 110/62 O2 Sat by Pulse 96 Oximetry Medical Decision Making - Medical Decision Making Was pt. sent in by a medical professional or institution (, PA, LICENSED NURSING ASSISTANT, urgent care, hospital, or fdc...) When possible be specific @ -No Did you speak to anyone other than the patient for history (EMS, parent, family, police, friend...)? What history was obtained from this source @ -No Did you review nursing and triage notes (agree or disagree)? Why? @ -I reviewed and agree with nursing and triage notes Were old charts reviewed (outside hosp., previous admission, EMS record, old EKG, old radiological studies, urgent care reports/EKG's, fdc records)? Report findings @ -Old chart was reviewed. Patient had computed tomography scan done on June 20 Differential Diagnosis (chest pain, altered mental status, abdominal pain women, abdominal pain men, vaginal bleeding, weakness, fever, dyspnea, syncope, headache, dizziness, GI bleed, back pain, seizure, CVA, palpatations, mental health, musculoskeletal)? @ -Differential Dyspnea: Coronary syndrome, arrhythmia, tamponade, asthma, COPD, pulmonary embolism, pneumonia, pneumothorax, pulmonary effusion, anaphylaxis, diabetic ketoacidosis, flailed chest, pulmonary contusion, diaphragmatic rupture, anemia, neuromuscular, this is not meant to be an all-inclusive list. EKG interpreted by me (3pts min.). @ -Not done X-rays interpreted by me (1pt min.). @ -Interpreted by me and demonstrates COPD changes CT interpreted by me (1pt min.). @ -None done U/S interpreted by me (1pt. min.). @ -None done What testing was considered but not performed or refused? (CT, X-rays, U/S, labs)? Why? @ -EKG and blood work was considered however the patient refused What meds were considered but not given or refused? Why? @ -None Did you discuss the management of the patient with other professionals (professionals i.e. , PA, LICENSED NURSING ASSISTANT, lab, RT, psych nurse, social science teacher, automotive technician instructor, teacher, [place] police officer, casework supervisor)? Give summary @ -No Was smoking cessation discussed for >3mins.? @ -Yes Was critical care preformed (if so, how long)? @ -No Were there social determinants of health that impacted care today? How? (Homelessness, low income, unemployed, alcoholism, drug addiction, transportation, low edu. Level, literacy, decrease access to med. care, fpc, rehab)? @ -No Was there de-escalation of care discussed even if they declined (Discuss DNR or withdrawal of care, Hospice)? DNR status @ -No What co-morbidities impacted this encounter? (DM, HTN, Smoking, COPD, CAD, Cancer, CVA, ARF, Chemo, Hep., AIDS, mental health diagnosis, sleep apnea, morbid obesity)? @ -COPD, nicotine abuse Was patient admitted / discharged? Hospital course, mention meds given and route, prescriptions, significant lab abnormalities, going to OR and other pertinent info. @ -On arrival patient was placed into room 13. Thorough history and physical exam was performed. Laboratory studies and EKG offered however patient refused. He is agreeable to viral swab and chest x-ray. Covid, influenza and RSV are negative. Chest x-ray demonstrates COPD changes. He is given a DuoNeb esvin thing treatment and 60 mg of prednisone. Discussed the treatment options with the patient. He would like to go home. He'll be placed on prednisone 20 mg twice daily for the next 5 days. Use his inhaler every 4 hours. Follow-up with his doctor and return for any new or worsening symptoms. Recommend he stop smoking. Patient understood and was discharged in stable condition. Undiagnosed new problem with uncertain prognosis? @ -Yes Drug Therapy requiring intensive monitoring for toxicity (Heparin, Nitro, Insulin, Cardizem)? @ -No Were any procedures done? @ -No Diagnosis/symptom? @ -Acute respiratory and sufficiency, acute exacerbation of COPD, continued nicotine abuse Acute, or Chronic, or Acute on Chronic? @ -Acute on chronic Uncomplicated (without systemic symptoms) or Complicated (systemic symptoms)? @ -Complicated Side effects of treatment? @ -No Exacerbation, Progression, or Severe Exacerbation? @ -Exacerbation Poses a threat to life or bodily function? How? (Chest pain, [place], [place], pneumonia, PE, COPD, DKA, ARF, appy, cholecystitis, CVA, Diverticulitis, Homicidal, Suicidal, threat to staff... and all critical care pts) @ -Yes, patient's acute respiratory insufficiency could lead to acute pulmonary arrest - Lab Data Lab Results 07/21/22 Range/Units 12:25 Influenza Type A (PCR) Not Detected (Not Detectd) Influenza Type B (PCR) Not Detected (Not Detectd) RSV (PCR) Not Detected (Not Detectd) SARS-CoV-2 (PCR) Not Detected (Not Detectd) Disposition Clinical Impression: Acute exacerbation of chronic obstructive pulmonary disease, Tracheobronchitis Disposition: HOME SELF-CARE Condition: Stable Instructions (If sedation given, give patient instructions): COPD (Chronic Obstructive Pulmonary Disease) (ED) Additional Instructions: Please use your inhaler every 4 hours. Take antibiotics and steroids starting tomorrow. Follow-up with your doctor and return should your breathing not improved in a few days Prescriptions: predniSONE [Deltasone] 20 mg PO BID #10 tab Doxycycline Hyclate 100 mg PO BID 1 Days #20 tab Is patient prescribed a controlled substance at d/c from ED?: No Referrals: Chad Tobin DO [Primary Care Provider] - 1-2 days Time of Disposition: 13:55
[2022-07-21 13:50] VITALS: PULSE 96; RESP 18
[2022-07-21 14:36] VITALS: BP 110/62
== END 2022-07-21 14:36 | disposition home or self-care (01) ==
LOC: EC 11:26
DX: J44.1 Chronic obstructive pulmonary disease with (acute) exacerbation (principal); J40 Bronchitis, not specified as acute or chronic; I10 Essential (primary) hypertension; K21.9 Gastro-esophageal reflux disease without esophagitis; E78.5 Hyperlipidemia, unspecified; F17.200 Nicotine dependence, unspecified, uncomplicated; Z79.52 Long term (current) use of systemic steroids; Z79.82 Long term (current) use of aspirin; Z79.899 Other long term (current) drug therapy; Z20.822 Contact with and (suspected) exposure to COVID-19
CPT/HCPCS: 94640; 87636; 71046; 99285; J7512

== ENCOUNTER → 2022-08-26 | Outpatient (CLI) | payer SELFPAY ==
[2022-08-26 15:33] LABS: Basophils # (A) 0.03 X 10*3/uL (0.00-0.10); Basophils % (A) 0.3 %; Eosinophils # (A) 0.15 X 10*3/uL (0.04-0.35); Eosinophils % (A) 1.3 %; HCT 44.3 % (39.6-50.0); HGB 14.9 d/dL (12.0-15.0); Lymphocytes # (A) 2.09 X 10*3/uL (0.90-5.00); Lymphocytes % (A) 18.1 %; MCH 30.4 pg (27.0-32.0); MCHC 33.6 d/dL (32.0-37.0); MCV 90.4 FL (80.0-97.0); Mean Platelet Volume 9.3 FL (9.5-12.2); Monocytes # (A) 1.05 X 10*3/uL (0.20-1.00); Monocytes % (A) 9.1 %; NRBC Per 100 WBC 0 X 10*3/uL (0.00-0.01); Neutrophils # (A) 8.17 X 10*3/uL (1.80-7.70); Neutrophils % (A) 70.9 %; Platelet Count 264 X 10*3/uL (140-440); RDW 13.8 % (11.5-14.5); WBC 11.52 X 10*3/uL (4.50-10.00)
[2022-08-26 16:06] LABS: ALT 25 U/L (10-49); AST 19 U/L (14-35); Albumin 4.4 d/dL (3.8-4.9); Alkaline Phosphatase 104 U/L (41-126); BUN/Creat Ratio 9.11 Ratio (12.00-20.00); Blood Urea Nitrogen 8.2 mg/dL (9.0-27.0); Calcium 9.5 mg/dL (8.7-10.3); Carbon Dioxide 26.3 mmol/L (21.6-31.8); Chloride 107 mmol/L (96-109); Globulin 2.2 d/dL (1.6-3.3); Glucose 103 mg/dL (70-110); Potassium 4.4 mmol/L (3.5-5.5); Sodium 142 mmol/L (135-145); T4, Free (Free Thyroxine) 1.46 ng/dL (0.80-1.80); Total Bilirubin 0.6 mg/dL (0.3-1.2); Total Protein 6.6 d/dL (6.2-8.2)
[2022-08-26 16:28] LABS: Erythrocyte Sedimentation Rate 12 mm/Hr (0-20)
== END | disposition home or self-care (01) ==
LOC: LABWHC1 12:12
PROVIDERS: ATTEND Internal Medicine
DX: R53.1 Weakness (principal); R53.83 Other fatigue
CPT/HCPCS: 36415; 80053; 82533; 82607; 82652; 84439; 84443; 85025; 85652; 86038

== ENCOUNTER → 2022-08-31 | Outpatient (CLI) | payer SELFPAY ==
[2022-08-31 20:32] LABS: Creatine Kinase 112 U/L (35-257); Rheumatoid Factor, Qnt <15 IU/mL (0-15)
== END | disposition home or self-care (01) ==
LOC: LABWHC1 12:11
PROVIDERS: ATTEND Internal Medicine Critical Care Medicine
DX: G89.29 Other chronic pain (principal); E27.40 Unspecified adrenocortical insufficiency; R53.83 Other fatigue
CPT/HCPCS: 36415; 82024; 82550; 85652; 86038; 86140; 86431

== ENCOUNTER → 2022-09-13 | Outpatient (CLI) | payer SELFPAY ==
[~2022-09-13] MED LIST: COSYNTROPIN 0.25 MG VIAL IVP NR; SODIUM CHLORIDE 0.9% 500 ML 500 ML in EMPTY BAG 1 BAG IV PRN
[2022-09-13 11:43] VITALS: BP 127/82; PULSE 86; RESP 16; TEMP 97.5
[2022-09-13 12:24] LABS: C Reactive Protein <0.5 mg/dL (<1.0); Creatine Kinase 121 U/L (55-170)
[2022-09-13 16:14] LABS: Rheumatoid Factor, Qnt <15 IU/mL (0-15)
== END ==
LOC: PROCWHC3 11:20
PROVIDERS: ATTEND Internal Medicine Critical Care Medicine
DX: G93.32 Myalgic encephalomyelitis/chronic fatigue syndrome (principal); G89.4 Chronic pain syndrome
CPT/HCPCS: 85652; 82533; 82550; 86140; 86431; 82024; 86038; 96374; J0834

== ENCOUNTER → 2023-01-09 | Outpatient (CLI) | payer SELFPAY ==
--- NOTE | 2023-01-09 17:08 | CT ---
EXAMINATION TYPE: CT chest w con CT DLP: 297.8 mGycm, Automated exposure control for dose reduction was used. DATE OF EXAM: 01/09/2023 4:34 PM COMPARISON: CT 06/20/2022, PET/CT 04/01/2022. CLINICAL INDICATION:Male, 62 years old with history of R91.1 SOLITARY PULMONARY NODULE; PHH, COPD, F/ U on lower lung mass TECHNIQUE: Multiple axial images were obtained through the chest. Sagittal and coronal reformats were created for review. Contrast used:80 cc mL of Isovue 300 with IV Contrast (None if empty) Oral contrast used: (None if empty) FINDINGS: LUNGS/ PLEURA: Right lower lobe nodule seen on priors is now has a streaky linear atelectasis/scarrin g. No focal consolidation, pneumothorax or pleural effusion. No new or enlarging pulmonary nodules. AIRWAY: Patent and unremarkable. HEART: Size within normal limits. MEDIASTINUM: No gross evidence of adenopathy. VASCULATURE: No aortic aneurysm. MUSCULOSKELETAL: Moderate disc degeneration changes are present throughout the thoracolumbar spine. SOFT TISSUES/LYMPH NODES: Unremarkable. LOWER NECK: No significant findings. UPPER ABDOMEN: No significant findings. IMPRESSION: 1. Continued improvement of right lower lobe nodule seen priors in comparing to PET 04/01/2022, this area now has a linear streaky scarring/atelectasis appearance. No suspicious pulmonary nodules. Back to yearly low-dose lung cancer screening recommended. 2. Moderate to severe emphysema.
== END | disposition home or self-care (01) ==
LOC: RADCTMAIN 16:04
PROVIDERS: ATTEND Internal Medicine Critical Care Medicine
DX: J43.9 Emphysema, unspecified (principal); R91.1 Solitary pulmonary nodule
CPT/HCPCS: 71260; Q9967

== ENCOUNTER → 2023-01-25 | Outpatient (CLI) | payer SELFPAY ==
[2023-01-25 15:25] LABS: ALT 33 U/L (10-49); AST 24 U/L (14-35); Chol/HDL Ratio 2.59 Ratio; LDL Cholesterol,Calculated 69.9 mg/dL (0.0-131.0); VLDL Calculation 11.78 mg/dL (5.00-40.00)
== END | disposition home or self-care (01) ==
LOC: LABWHC1 10:08
PROVIDERS: ATTEND Internal Medicine Interventional Cardiology
DX: E78.2 Mixed hyperlipidemia (principal)
CPT/HCPCS: 36415; 80061; 84450; 84460

== ENCOUNTER → 2023-11-17 | Outpatient (CLI) | payer MEDICARE, OTHER ==
--- NOTE | 2023-11-19 20:54 | CT ---
EXAMINATION TYPE: CT chest w con DATE OF EXAM: 11/17/2023 COMPARISON: 01/09/2023 HISTORY: Chronic cough x [address] DLP: 224.7 mGycm, Automated exposure control for dose reduction was used. CONTRAST: Performed injected with 100 cc mL of Isovue 370. TECHNIQUE: Axial images were obtained at 5 mm thick sections. Reconstructed images are reviewed on [employer] computer in the coronal plane. FINDINGS: Portion of the thyroid visualized is normal. No suspicious infiltrates or nodules. Some mild streak density in the posterior right lung is diminis hed in size from comparison No enlarged mediastinal or hilar adenopathy is evident. The ascending aorta diameter at the level o f the main pulmonary artery is 3.4 cm. The main pulmonary artery diameter at the bifurcation is 2.[address] sections are obtained through the upper abdomen. Abdomen is essentially unremarkable. IMPRESSION: 1. No suspicious intrathoracic abnormality. [facility], Workstation: [facility], 11/19/2023 8:52 PM
== END | disposition home or self-care (01) ==
LOC: RADCTMAIN 15:57
PROVIDERS: ATTEND Internal Medicine Critical Care Medicine
DX: R91.8 Other nonspecific abnormal finding of lung field (principal)
CPT/HCPCS: 71260

== ENCOUNTER → 2023-11-17 | Outpatient (CLI) | payer MEDICARE, OTHER ==
[2023-11-17 16:04] LABS: ALT 45 U/L (10-49); AST 25 U/L (14-35); Albumin 4.5 g/dL (3.8-4.9); Albumin/Globulin Ratio 2.14 Ratio (1.60-3.17); Alkaline Phosphatase 102 U/L (41-126); BUN/Creat Ratio 24.75 Ratio (12.00-20.00); Blood Urea Nitrogen 19.8 mg/dL (9.0-27.0); Calcium 9.3 mg/dL (8.7-10.3); Carbon Dioxide 24.8 mmol/L (21.6-31.8); Chloride 104 mmol/L (96-109); Globulin 2.1 g/dL (1.6-3.3); Glucose 124 mg/dL (70-110); LDL Cholesterol,Calculated 74.7 mg/dL (0.0-131.0); Potassium 4.8 mmol/L (3.5-5.5); Sodium 140 mmol/L (135-145); T4, Free (Free Thyroxine) 1.72 ng/dL (0.80-1.80); Total Bilirubin 0.4 mg/dL (0.3-1.2); Total Protein 6.6 g/dL (6.2-8.2); VLDL Calculation 11.14 mg/dL (5.00-40.00)
[2023-11-17 20:37] LABS: Basophils # (A) 0.03 X 10*3/uL (0.00-0.10); Basophils % (A) 0.2 %; Eosinophils # (A) 0.02 X 10*3/uL (0.04-0.35); Eosinophils % (A) 0.2 %; HCT 46.4 % (39.6-50.0); HGB 15.2 g/dL (13.0-17.0); Lymphocytes # (A) 1.04 X 10*3/uL (0.90-5.00); Lymphocytes % (A) 8.2 %; MCH 29.7 pg (27.0-32.0); MCHC 32.8 g/dL (32.0-37.0); MCV 90.6 FL (80.0-97.0); Mean Platelet Volume 9.4 FL (9.5-12.2); Monocytes # (A) 0.46 X 10*3/uL (0.20-1.00); Monocytes % (A) 3.6 %; NRBC Per 100 WBC 0 X 10*3/uL (0.00-0.01); Neutrophils # (A) 11.05 X 10*3/uL (1.80-7.70); Neutrophils % (A) 87.2 %; Platelet Count 279 X 10*3/uL (140-440); RBC 5.12 X 10*6/uL (4.40-5.60); RDW 15.4 % (11.5-14.5); WBC 12.67 X 10*3/uL (4.50-10.00)
== END | disposition home or self-care (01) ==
LOC: LABWHC1 11:18
PROVIDERS: ATTEND Internal Medicine Critical Care Medicine
DX: Z00.00 Encounter for general adult medical examination without abnormal findings
CPT/HCPCS: 36415; 80053; 80061; 82306; 83036; 84439; 84443; 85025

== ENCOUNTER → 2024-01-19 | Outpatient (CLI) | payer MEDICARE, OTHER ==
[2024-01-19 19:23] LABS: ALT 26 U/L (10-49); AST 23 U/L (14-35); Albumin 4.4 g/dL (3.8-4.9); Alkaline Phosphatase 82 U/L (41-126); Blood Urea Nitrogen 16.1 mg/dL (9.0-27.0); Calcium 9.5 mg/dL (8.7-10.3); Carbon Dioxide 27.9 mmol/L (21.6-31.8); Chloride 104 mmol/L (96-109); Chol/HDL Ratio 2.44 Ratio; Globulin 2.2 g/dL (1.6-3.3); Glucose 110 mg/dL (70-110); LDL Cholesterol,Calculated 75.5 mg/dL (0.0-131.0); Potassium 4.6 mmol/L (3.5-5.5); Sodium 142 mmol/L (135-145); Total Bilirubin 0.5 mg/dL (0.3-1.2); Total Protein 6.6 g/dL (6.2-8.2)
== END | disposition home or self-care (01) ==
LOC: LABWHC1 13:23
PROVIDERS: ATTEND Internal Medicine Interventional Cardiology
DX: E78.2 Mixed hyperlipidemia (principal)
CPT/HCPCS: 36415; 80053; 80061